=== PATIENT | female | born 1990 | race Caucasian/White ===

== ENCOUNTER → 2020-04-19 | Outpatient (CLI) | payer OTHER ==
--- NOTE | 2020-04-19 11:22 | REP ---
Left foot series: Five views. History: Injury. Pain. Findings: Five views of the left foot show overall normal mineralization. No fracture or subluxation is seen. No opaque foreign body noted. Impression: Negative radiographs of the left foot. Electronically Signed by Marcel Cruz MD 04/19/2020 11:13 A
== END ==
LOC: M LRY 10:45
PROVIDERS: ATTEND Physician Assistant
DX: S99.922A Unspecified injury of left foot, initial encounter (principal); X58.XXXA Exposure to other specified factors, initial encounter; Y92.9 Unspecified place or not applicable

== ENCOUNTER 2020-05-08 13:15 | Emergency (ER) | payer OTHER ==
[~2020-05-08] VITALS: Ht 170.2 cm; Wt 66.7 kg
[2020-05-08] MEDS ORDERED: HYDR-4468 PO (13:23)
[2020-05-08] MEDS ORDERED: HYDR10VL (13:23)
[2020-05-08] MEDS ORDERED: FLUD0.1T PO (13:23)
[2020-05-08] MEDS ORDERED: ONDANSETRON 4MG/2ML VIAL IV ONE ×2 (14:45→16:15)
[2020-05-08] MEDS ORDERED: HYDROCORTISONE 100 MG/2 ML VIAL (J1720 PER 1) IV ONE (14:45)
[2020-05-08] MEDS ORDERED: NS 1,000 ML IV ONE (14:45)
[2020-05-08] MEDS: HYDROMORPHONE HCL 0.5 MG/ 0.5 ML SYRINGE (J1170 PER 1) IV PRN ×4 (15:03→19:05)
[2020-05-08 15:12] LABS: BASO # 0.1 10^3/uL (0.0-0.2); EOS # 0.3 10^3/uL (0.0-0.5); EOS % 5.2 % (0.0-3.0); HEMATOCRIT 37.3 % (36.0-47.0); HEMOGLOBIN 12.5 g/dl (12.0-15.5); LYMPH # 1.5 10^3/uL (1.5-5.0); LYMPH % 24.7 % (24.0-44.0); MEAN CORPUSCULAR HEMOGLOBIN 30.5 pg (27.0-33.0); MEAN CORPUSCULAR HGB CONC 33.5 g/dl (32.0-36.5); MONO # 0.3 10^3/uL (0.0-0.8); MONO % 5.1 % (0.0-5.0); NEUTROPHILS # 3.8 10^3/uL (1.5-8.5); NEUTROPHILS % 63.8 % (36.0-66.0); PLATELET COUNT, AUTOMATED 218 10^3/uL (150-450); WHITE BLOOD COUNT 5.9 10^3/uL (4.0-10.0)
[2020-05-08 15:28] LABS: ALBUMIN 4.2 GM/DL (3.2-5.2); ALT/SGPT 14 U/L (12-78); BILIRUBIN,DIRECT < 0.1 MG/DL (0.0-0.2); BILIRUBIN,TOTAL 0.5 MG/DL (0.2-1.0); LIPASE 121 U/L (73-393); TOTAL PROTEIN 7.2 GM/DL (6.4-8.2)
[2020-05-08] MEDS ORDERED: ISOVUE-370 76% 100ML VIAL As Ordered ONE (16:07)
[2020-05-08 17:39] LABS: FREE THYROXINE INDEX 1.7 % (1.3-4.8); T UPTAKE 36 % (30-39); THYROID STIMULATING HORMONE 0.629 uIU/ML (0.358-3.740); THYROXINE (T4) 4.7 UG/DL (4.5-12.0)
[2020-05-08] MEDS ORDERED: PROMETHAZINE INJ 25 MG/ML VIAL (J2550) IV ONE (17:45)
--- NOTE | 2020-05-08 17:46 | IPNPDOC ---
Date Seen The patient was seen on 05/08/20. Progress Note HOSPITALIST RECOMMENDATIONS: Patient has run out of her medications for [place]'s disease and presented with abdominal pain, n/v, back pain with radiation to the lower extremities, afebrile without white count. presenting blood pressure was 132 mmHg systolic, with resolution of back pain. CTAbd angio-no mesenteric ischemia as the patient has prior history of celiac artery compromise. UA was negative. No active infection that could exacerbate adrenal insufficiency. pt was restarted on her meds, and is to followup with her PCP within 5 days of discharge. Pt is able to tolerate oral intake without persistent n/v, no fever or active infectious process, with normal CT abd, with back pain resolved. VS, I&O, 24H, Fishbone Vital Signs/I&O Vital Signs Date Time Temp Pulse Resp B/P (MAP) Pulse Ox O2 Delivery O2 Flow Rate FiO2 05/08/20 16:30 18 05/08/20 13:46 05/08/20 13:15 98.4 62 100 Room Air Laboratory Data 24H LABS Laboratory Tests 2 05/08/20 14:20: Immature Granulocyte % (Auto) 0.2, Neutrophils (%) (Auto) 63.8, Lymphocytes (%) (Auto) 24.7, Monocytes (%) (Auto) 5.1H, Eosinophils (%) (Auto) 5.2H, Basophils (%) (Auto) 1.0, Neutrophils # (Auto) 3.8, Lymphocytes # (Auto) 1.5, Monocytes # (Auto) 0.3, Eosinophils # (Auto) 0.3, Basophils # (Auto) 0.1, Nucleated Red Blood Cells % (auto) 0.0, Total Bilirubin 0.5, Direct Bilirubin < 0.1, Aspartate Amino Transf (AST/SGOT) 12, Alanine Aminotransferase (ALT/SGPT) 14, Alkaline Phosphatase 58, Total Protein 7.2, Albumin 4.2, Albumin/Globulin Ratio 1.4, Lipase 121, Thyroid Stimulating Hormone (TSH) 0.629, Free Thyroxine Index 1.7, Thyroxine (T4) 4.7, Triiodothyronine (T3) Uptake 36 05/08/20 14:38: 05/08/20 15:01: POC Glucose (Misc Panel) 90, POC Sodium (Misc Panel) 140, POC Potassium (Misc Panel) 3.8, POC Chloride (Misc Panel) 105, POC Total CO2 (Misc Panel) 22.0L, POC Blood Urea Nitrogen (Misc Panel 7L, POC Ionized Calcium (Misc Panel) 5.0, POC Creatinine (Misc Panel) 0.7, POC Hematocrit (Misc Panel) 37.0L 05/08/20 15:03: POC Beta HCG, Quantitative < 5.0 05/08/20 17:10: Urine Color STRAW, Urine Appearance HAZY, Urine pH 5.0, Urine Specific [place] 1.011, Urine Protein NEGATIVE, Urine Glucose (UA) NEGATIVE, Urine Ketones NEGAT EDDY, Urine Blood NEGATIVE, Urine Nitrite NEGATIVE, Urine Bilirubin NEGATIVE, Urine Urobilinogen 0.2, Urine Leukocyte Esterase NEGATIVE, Urine WBC (Auto) 2, Urine RBC (Auto) 1, Urine Hyaline Casts (Auto) 0, Urine Bacteria (Auto) NEGATIVE, Urine Squamous Epithelial Cells 4, Urine Mucus (Auto) SMALL, Urine Sperm (Auto) CBC/BMP Laboratory Tests 05/08/20 14:20 ELVAI SANCHEZ MD May 08, 2020 17:46
[2020-05-08] MEDS ORDERED: DILA2TAB6 PO (19:31)
[2020-05-08 19:43] VITALS: BP 114/65
[2020-05-08] MEDS ORDERED: HYDROmorphone 2 MG TAB PO ONE (19:45)
--- NOTE | 2020-05-09 04:00 | REP ---
CT ANGIOGRAM ABDOMEN: 05/08/2020. TECHNIQUE: Patient received bolus of 100 mL Isovue-370. Scanning through the abdomen with our CT angiogram protocol. Coronal and sagittal standard reconstructions with coronal MIP reformat also provided. CLINICAL HISTORY: Severe left-sided abdominal pain. "History of celiac artery disruption." I do not have any prior studies or other information available at the time of this emergent request. FINDINGS: The lung bases were clear except for minimal dependent atelectasis posteriorly in the lower lung zones. Heart not enlarged. No pericardial thickening or effusion. No hiatal hernia. Liver and spleen are normal in size and without focal lesion for arterial phase imaging. No biliary dilatation. Gallbladder is surgically absent. Common duct in the pancreatic head is up to 7 mm in transverse diameter, which is normal for postcholecystectomy patient. No calcifications seen within it. Pancreas shows no mass or pancreatic ductal dilatation. The bilateral adrenal glands are normal. Kidneys show function without obstruction, stone, mass, or cyst. No hydroureter or ureteral dilatation in the abdomen proper. Small bowel loops and colon in the abdomen proper were unremarkable. The abdominal aorta shows no aneurysm or dissection. The celiac axis has normal takeoff without stricture. Its proximal course and supply of the hepatic and splenic arteries appears grossly normal. Likewise, the SMA is without stenosis at its origin or proximal course. An MARCO is seen and unremarkable. Common iliac arteries to the bifurcation were unremarkable. Symmetric normal appearing renal arteries, as well. Lung window review of all CT slices shows no perforation or free air. The bone window review shows no acute bony abnormality in the spine or visible ribs. IMPRESSION: 1. Excellent contrast opacification with the origin and course of the celiac axis and its major vessels normal. No dissection or aneurysm. No vessel cutoff. 2. SMA, MARCO, abdominal aorta, and iliac vessels all unremarkable. 3. No renal abnormalities or renal arterial stenoses. Negative exam. Electronically Signed by Aram Wu MD 05/09/2020 08:53 A
[2020-05-09 12:52] LABS: CORTISOL BASELINE 5.2 UG/DL (4.3-22.4)
== END 2020-05-08 19:55 | disposition home or self-care (01) ==
LOC: M ED 13:15
DX: E27.1 Primary adrenocortical insufficiency (principal); R10.9 Unspecified abdominal pain; R11.0 Nausea; Z88.0 Allergy status to penicillin; Z88.2 Allergy status to sulfonamides; Z88.6 Allergy status to analgesic agent; Z88.8 Allergy status to other drugs, medicaments and biological substances
CPT/HCPCS: 74175; 80047; 80076; 81001; 82024; 82533; 83690; 84436; 84443; 84479; 84702; 85025; 96361; 96374; 96375; 96376; 99284; J1170; J1720; J2405; Q9967

== ENCOUNTER 2020-05-24 12:22 | Emergency (ER) | payer OTHER ==
[~2020-05-24 12:22] MED LIST: DILA2TAB6 PO; FLUD0.1T PO; HYDR-4468 PO; HYDR10VL
[2020-05-24] MEDS ORDERED: ONDANSETRON 4MG/2ML VIAL ONE (13:29)
[2020-05-24] MEDS ORDERED: HYDROCORTISONE 100 MG/2 ML VIAL (J1720 PER 1) As Ordered ONE (13:29)
[2020-05-24] MEDS ORDERED: HYDROMORPHONE HCL 0.5 MG/ 0.5 ML SYRINGE (J1170 PER 1) ONE (13:29)
[2020-05-24] MEDS ORDERED: HYDROMORPHONE HCL 0.5 MG/ 0.5 ML SYRINGE (J1170 PER 1) As Ordered ONE (13:29)
[2020-05-24] MEDS ORDERED: ONDANSETRON 4MG/2ML VIAL As Ordered ONE (13:29)
[2020-05-24] MEDS ORDERED: HYDROCORTISONE 100 MG/2 ML VIAL (J1720 PER 1) ONE (13:29)
[2020-05-24] MEDS ORDERED: HALOPERIDOL 5MG/ML VIAL (J1630 PER 1) As Ordered ONE (15:07)
[2020-05-24] MEDS ORDERED: HALOPERIDOL 5MG/ML VIAL (J1630 PER 1) ONE (15:07)
[2020-06-19 22:51] LABS: ALBUMIN 4.3 GM/DL (3.2-5.2); ALT/SGPT 13 U/L (12-78); BILIRUBIN,TOTAL 0.7 MG/DL (0.2-1.0); BLOOD UREA NITROGEN 9 MG/DL (7-18); CALCIUM LEVEL 9.4 MG/DL (8.5-10.1); CARBON DIOXIDE LEVEL 28 MEQ/L (21-32); CHLORIDE LEVEL 104 MEQ/L (98-107); CREATININE FOR GFR 0.81 MG/DL (0.55-1.30); FREE T4 0.91 NG/DL (0.76-1.46); GLOMERULAR FILTRATION RATE > 60.0 (>60); GLUCOSE, FASTING 79 MG/DL (70-100); SODIUM LEVEL 139 MEQ/L (136-145); THYROID STIMULATING HORMONE 0.453 uIU/ML (0.358-3.740); TOTAL PROTEIN 7.3 GM/DL (6.4-8.2)
[2020-06-24 23:16] LABS: BASO % 0.4 % (0.0-1.0); EOS # 0.2 10^3/uL (0.0-0.5); HEMATOCRIT 40.6 % (36.0-47.0); HEMOGLOBIN 13.3 g/dl (12.0-15.5); LYMPH # 1.2 10^3/uL (1.5-5.0); LYMPH % 14.8 % (24.0-44.0); MEAN CORPUSCULAR HEMOGLOBIN 30.1 pg (27.0-33.0); MEAN CORPUSCULAR HGB CONC 32.8 g/dl (32.0-36.5); MEAN CORPUSCULAR VOLUME 91.9 fl (80.0-96.0); MONO # 0.5 10^3/uL (0.0-0.8); MONO % 5.8 % (0.0-5.0); NEUTROPHILS # 6.1 10^3/uL (1.5-8.5); NEUTROPHILS % 76.7 % (36.0-66.0); PLATELET COUNT, AUTOMATED 254 10^3/uL (150-450); RED BLOOD COUNT 4.42 10^6/uL (4.00-5.40)
== END 2020-05-24 16:40 | disposition home or self-care (01) ==
LOC: M ED 12:22
DX: E27.2 Addisonian crisis (principal); Z88.2 Allergy status to sulfonamides; Z88.0 Allergy status to penicillin; Z88.1 Allergy status to other antibiotic agents; Z88.8 Allergy status to other drugs, medicaments and biological substances; Z88.6 Allergy status to analgesic agent
CPT/HCPCS: 80053; 84439; 84443; 85025; 96361; 96374; 96375; 99284; J1170; J1630; J1720; J2405

== ENCOUNTER 2020-06-21 13:01 | Inpatient (IN) | payer OTHER ==
[~2020-06-21] VITALS: Ht 170.2 cm; Wt 63.0 kg
[2020-06-21] MEDS ORDERED: HYDR-4468 PO ×3 (13:25→15:45)
[2020-06-21] MEDS ORDERED: ONDANSETRON 4MG/2ML VIAL IV ONE (14:00)
[2020-06-21] MEDS ORDERED: NS 1,000 ML IV ONE (14:00)
[2020-06-21] MEDS ORDERED: ACETAMINOPHEN 325 MG TAB PO ONE (14:00)
[2020-06-21] MEDS: HYDROMORPHONE HCL 0.5 MG/ 0.5 ML SYRINGE (J1170 PER 1) IV PRN ×5 (14:21→23:26)
[2020-06-21 14:30] LABS: BASO % 0.3 % (0.0-1.0); EOS # 0.1 10^3/uL (0.0-0.5); EOS % 0.5 % (0.0-3.0); HEMATOCRIT 38.4 % (36.0-47.0); HEMOGLOBIN 12.6 g/dl (12.0-15.5); LYMPH # 1.1 10^3/uL (1.5-5.0); LYMPH % 10.5 % (24.0-44.0); MEAN CORPUSCULAR HEMOGLOBIN 30.4 pg (27.0-33.0); MEAN CORPUSCULAR HGB CONC 32.8 g/dl (32.0-36.5); MEAN CORPUSCULAR VOLUME 92.5 fl (80.0-96.0); MONO # 0.5 10^3/uL (0.0-0.8); MONO % 4.4 % (0.0-5.0); NEUTROPHILS # 8.8 10^3/uL (1.5-8.5); NEUTROPHILS % 83.9 % (36.0-66.0); PLATELET COUNT, AUTOMATED 217 10^3/uL (150-450); RED BLOOD COUNT 4.15 10^6/uL (4.00-5.40); WHITE BLOOD COUNT 10.4 10^3/uL (4.0-10.0)
[2020-06-21 14:49] LABS: ALBUMIN 4.2 GM/DL (3.2-5.2); ALT/SGPT 12 U/L (12-78); BILIRUBIN,DIRECT 0.1 MG/DL (0.0-0.2); BILIRUBIN,TOTAL 0.5 MG/DL (0.2-1.0); BLOOD UREA NITROGEN 8 MG/DL (7-18); CALCIUM LEVEL 9.1 MG/DL (8.5-10.1); CARBON DIOXIDE LEVEL 32 MEQ/L (21-32); CHLORIDE LEVEL 106 MEQ/L (98-107); CREATININE FOR GFR 0.75 MG/DL (0.55-1.30); GLOMERULAR FILTRATION RATE > 60.0 (>60); GLUCOSE, FASTING 87 MG/DL (70-100); LIPASE 56 U/L (73-393); POTASSIUM SERUM 3.1 MEQ/L (3.5-5.1); SODIUM LEVEL 140 MEQ/L (136-145); TOTAL PROTEIN 6.8 GM/DL (6.4-8.2)
[2020-06-21] MEDS ORDERED: cefTRIAXone SOD 1 GM in D5W MINI-BAG PLUS 50 ML IV ONE (15:15)
--- NOTE | 2020-06-21 15:23 | REPVR ---
PROCEDURE INFORMATION: Exam: CT Abdomen And Pelvis Without Contrast Exam date and time: 06/21/2020 2:09 PM Age: 30 years old Clinical indication: Abdominal pain; Flank; Right TECHNIQUE: Imaging protocol: Computed tomography of the abdomen and pelvis without contrast. Radiation optimization: All CT scans at this facility use at least one of these dose optimization techniques: automated exposure control; mA and/or kV adjustment per patient size (includes targeted exams where dose is matched to clinical indication); or iterative reconstruction. COMPARISON: CT ANGIO ABDOMEN 05/08/2020 4:08 PM FINDINGS: Lungs: Clear appearing lung bases. Heart: Normal-sized heart. Liver: On the CT angiogram with contrast 05/08/2020 there is patchy enhancement throughout the right lobe of liver. This pattern may be normal variation, related to hepatocellular disease or metastasis. I would recommend an MRI scan of the liver with Eovist to exclude any possibility of significant pathology. Gallbladder and bile ducts: Surgical clips are noted at the gallbladder fossa and the patient is status post cholecystectomy. Pancreas: Normal. No ductal dilation. Spleen: Normal spleen. Adrenals: Normal adrenal glands. Normal adrenal glands. Kidneys and ureters: There is a 2 mm calcified stone lower pole the right kidney. There are 2 punctate stones lower pole of left kidney. There is no evidence of obstruction of the right or left ureter. Stomach and bowel: Unremarkable. No obstruction. No mucosal thickening. Appendix: Normal appearing appendix. Intraperitoneal space: Unremarkable. No free air. No significant fluid collection. Vasculature: Unremarkable. No abdominal aortic aneurysm. Lymph nodes: There is no evidence of lymphadenopathy. Bladder: Normal appearing urinary urinary bladder. Reproductive: Normal appearing uterus. Mild prominence left ovary with a probable 1.8 cm follicular cyst. There are prominent uterine varices throughout the pelvis. Bones/joints: Unremarkable. No acute fracture. Soft tissues: There is no evidence of soft tissue abnormality. IMPRESSION: 1. Punctate stones right and left kidney with no evidence of obstruction at this time. 2. Mild prominence of the left ovary and 1.8 cm left follicular cyst. 3. On the previous contrast examination is noted that there is patchy areas of enhancement throughout the right lobe of the liver and recommend MRI with Eovist contrast to exclude any possibility of hepatocellular disease or metastasis. 4. Prominent uterine varices through the pelvis. Electronically signed by: Eric Cisse On 06/21/2020 15:23:56 PM
[2020-06-21] MEDS ORDERED: SUMA50TA2 PO (15:45)
[2020-06-21] MEDS ORDERED: ACETAMINOPHEN TAB 650MG DOSE (2X325MG) PO PRN (17:15)
[2020-06-21] MEDS ORDERED: SUMAtriptan SUCCINATE 25 MG TAB PO PRN (17:15)
[2020-06-21] MEDS ORDERED: TAMSULOSIN 0.4 MG CAP PO ONE (17:15)
[2020-06-21] MEDS ORDERED: POTASSIUM CHLORIDE 10 MEQ SR TABLET PO ONE (17:15)
--- NOTE | 2020-06-21 18:57 | HPEPDOC ---
[facility] Medical History & Physical Date of Admission Jun 21, 2020 Date of Service: Jun 21, 2020 Attending Physician: BK ARIZA MD History and Physical CHIEF COMPLAINT: Rt flank Pain HISTORY OF PRESENT ILLNESS: A 30-year-old female with [place]'s disease, previous history of Kidney stones-Rt sided lithtripsy (April 2015) and Pyelonephritis(Nov 2016) presented to the ED with complaint of severe, int ermittent, 7/10, aching , Rt flank pain with no aggravating and relieving factors that radiates to her Rt groin last night. She has associated Nausea with no vomiting along the same time period. She also has had increased frequency with burning while passing urine. She reports feeling febrile subjectively all night . She tried taking Tylenol for it but did not help relieving her pain . ROS- No history of travel, constipation, shortness of breath, chest pain, PND, Orthopnea, dizziness. PAST MEDICAL HISTORY: 1. [place]'s disease 2. Median arcuate ligament syndrome 3. Endometriosis 4. Pyelonephritis PAST SURGICAL HISTORY: 1. Rt lithotripsy (April 2015) 2. Cholecystectomy 3. 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 Paternal grandfather passed due to aplastic anemia ALLERGIES: Please see below. HOME MEDICATIONS: Please see below. PHYSICAL EXAMINATION: VITAL SIGNS: See BELOW GENERAL APPEARANCE: The patient looks mildly uncomfortable lying in bed due to her pain. HEENT: NC/AT, EOMI- Normal CARDIOVASCULAR: RRR , S1 S2( wide splitting was heard). No murmurs LUNGS: B/L clear lung sounds.No wheezing/ crackles/ ronchi ABDOMEN: Abdomen was Non distended , tenderness at supra-pubic area / RLQ. CVA tenderness +. No organomegaly , no guarding, no rigidity. EXTREMITIES: Pulses are good volume, regular NEUROLOGICAL: Normal motor strength and sensations intact PSYCHIATRIC:Aox3 Affect normal and appropriate LABORATORY DATA: See below. IMAGIN06/21/20 CT abdomen and Pelvis- MICROBIOLOGY: Please see below. ASSESSMENT AND PLAN: 30 YO Female, with a history of Pyelonephritis, Kidney stones, Leif's disease presents with a Rt flank pain radiating to the Rt groin found to be febrile, with leucocytosis, increased frequency of micturition with burning, concerning for Pyelonephritis. #Pyelonephritis: (flank pain, fever, leucocytosis, abnormal U/A, previous history of Pyelonephritis consistent with same): Pt started on I/v fluids (NS 80CC/hr with K supplementation of 10 meq). Ceftriaxone 1g 50 mg 100mls/hr IV Q24 H #Kidney stones: Already passed some??? (CT evidence of non obstructing stones in both kidneys, past history of kidney stones, leucocytosis, family history of kidney stones) Pt started on fluids IV. Dilaudid 0.3mg PRN / (Pt put on telemetry for monitoring while on opiates) Tamsulosin 0.4 mg daily PO #Hypokalemia(3.1): - KCl PO 40 meq once - Supplement IV fluids with KCl #Nausea: - Zofran 4mg IV Q4HP #Leif's Disease: Continue home dose of Fludrocortisone 0.05mg PO daily Increase Hydrocortisone to 20mg IV Q8 hrs.( Stress dose) #DVT prophylaxis - TEDS compression stockings Vital Signs Vital Signs Date Time Temp Pulse Resp B/P (MAP) Pulse Ox O2 Delivery O2 Flow Rate FiO2 06/21/20 15:36 18 06/21/20 13:34 06/21/20 13:01 97.8 83 100 Room Air Laboratory Data Labs 24H Laboratory Tests 2 06/21/20 13:44: Immature Granulocyte % (Auto) 0.4, Neutrophils (%) (Auto) 83.9H, Lymphocytes (%) (Auto) 10.5L, Monocytes (%) (Auto) 4.4, Eosinophils (%) (Auto) 0.5, Basophils (%) (Auto) 0.3, Neutrophils # (Auto) 8.8H, Lymphocytes # (Auto) 1.1L, Monocytes # (Auto) 0.5, Eosinophils # (Auto) 0.1, Basophils # (Auto) 0.0, Nucleated Red Blood Cells % (auto) 0.0, Urine Color YELLOW, Urine Appearance CLOUDYH, Urine pH 6.0, Urine Specific [place] 1.006, Urine Protein 2+H, Urine Glucose (UA) NEGATIVE, Urine Ketones NEGATIVE, Urine Blood 3+H, Urine Nitrite NEGATIVE, Urine Bilirubin NEGATIVE, Urine Urobilinogen 0.2, Urine Leukocyte Esterase 3+H, Urine WBC (Auto) TNTCH, Urine RBC (Auto) 127H, Urine Hyaline Casts (Auto) 0, Urine Bacteria (Auto) 3+H, Urine Squamous Epithelial Cells 8, Urine Mucus (Auto) SMALL, Urine Sperm (Auto) , Anion Gap 2L, Glomerular Filtration Rate > 60.0, Calcium Level 9.1, Total Bilirubin 0.5, Direct Bilirubin 0.1, Aspartate Amino Transf (AST/SGOT) 7, Alanine Aminotransferase (ALT/SGPT) 12, Alkaline Phosphatase 62, Total Protein 6.8, Albumin 4.2, Albumin/Globulin Ratio 1.6, Lipase 56L 06/21/20 15:10: Lactic Acid Level 0.8 CBC/BMP Laboratory Tests 06/21/20 13:44 Microbiology Microbiology 06/21/20 Blood Culture, Received Pending 06/21/20 Blood Culture, Received Pending 06/21/20 Urine Culture, Received Pending Home Medications Scheduled Fludrocortisone Acetate (Fludrocortisone Acetate) 0.1 Mg Tablet, 0.05 MG PO DAILY Hydrocortisone (Hydrocortisone) 10 Mg Tablet, 15 MG PO QAM Hydrocortisone (Hydrocortisone) 10 Mg Tablet, 5 MG PO DAILY NOON Hydrocortisone (Hydrocortisone) 10 Mg Tablet, 5 MG PO QPM Scheduled PRN Sumatriptan Succinate (Sumatriptan Succinate) 50 Mg Tablet, 50 MG PO ASDIRECTED PRN for MIGRAINE Allergies Coded Allergies: Penicillins (Verified Allergy, Unknown, rash, 05/08/20) Sulfa (Sulfonamide Antibiotics) (Verified Allergy, Unknown, rash, 05/08/20) ketorolac (Verified Allergy, Unknown, anaphylaxis, 05/08/20) metoclopramide (Verified Allergy, Unknown, anaphylaxis, 05/08/20) morphine (Verified Allergy, Unknown, chest pain, difficulty breathing, 05/08/20) NSAIDS (Non-Steroidal Anti-Inflamma (Verified Adverse Reaction, Unknown, ulcer, 05/08/20) A-FIB/CHADSVASC A-FIB History Current/History of A-Fib/PAF?: No Current PO Anticoag Therapy: No GME ATTESTATION GME ATTESTATION My faculty preceptor for this patient encounter was physically present during the encounter and was fully available. All aspects of the patient interview, examination, medical decision making process, and medical care plan development were reviewed and approved by the faculty preceptor. The faculty preceptor is aware and concurs with the plan as stated in the body of this note and will attest to such by his/her cosignature. ATTENDING NOTE I, Bk Ariza, have independently examined this patient and performed my own physical exam, as well as reviewed the documentation and edited where necessary. I have discussed in detail with the resident / student the findings and plan of treatment as documented by the resident / student and edited their note. I agree with their findings and treatment plan and have edited their documentation. I will continue to follow the patient during this hospital stay. Boy Burgos MD Jun 21, 2020 18:53 BK ARIZA MD Jun 22, 2020 14:06
[2020-06-21] MEDS: KCL 20MEQ in NS 1000ML 1,000 ML IV SCH (19:03)
[2020-06-21] MEDS: HYDROCORTISONE 100 MG/2 ML VIAL (J1720 PER 1) IV SCH (19:03)
[2020-06-21] MEDS: ONDANSETRON 4MG/2ML VIAL IV PRN ×2 (19:06→22:42)
[2020-06-21 19:46] LABS: HCG, SERUM QUALITATIVE NEGATIVE (NEGATIVE)
[2020-06-21 19:57] LABS: HCG, SERUM QUANTITATIVE < 1.0 MIU/ML
[2020-06-21] MEDS ORDERED: PROMETHAZINE INJ 25 MG/ML VIAL (J2550) IV ONE (20:30)
[2020-06-21 22:30] VITALS: BP 135/84
[2020-06-21 23:00] VITALS: O2SAT 99
[2020-06-21] MEDS ORDERED: PILL CUTTER 1 EACH XX PRN (23:00)
[2020-06-22] VITALS (21 sets, daily range): BP systolic 113–138; BP diastolic 57–88; O2SAT 96–99
[2020-06-22] MEDS: PROMETHAZINE INJ 25 MG/ML VIAL (J2550) IV PRN ×3 (01:02→10:05)
[2020-06-22] MEDS: HYDROCORTISONE 100 MG/2 ML VIAL (J1720 PER 1) IV SCH ×3 (01:02→18:13)
[2020-06-22] MEDS: HYDROMORPHONE HCL 0.5 MG/ 0.5 ML SYRINGE (J1170 PER 1) IV PRN ×8 (02:16→22:00)
[2020-06-22] MEDS: ONDANSETRON 4MG/2ML VIAL IV PRN ×3 (02:45→21:59)
[2020-06-22] MEDS: KCL 20MEQ in NS 1000ML 1,000 ML IV SCH (05:08)
[2020-06-22 06:09] LABS: HEMATOCRIT 28.6 % (36.0-47.0); MEAN CORPUSCULAR HGB CONC 33.6 g/dl (32.0-36.5); MEAN CORPUSCULAR VOLUME 92.3 fl (80.0-96.0); PLATELET COUNT, AUTOMATED 184 10^3/uL (150-450); WHITE BLOOD COUNT 5.8 10^3/uL (4.0-10.0)
[2020-06-22 06:27] LABS: HEMOGLOBIN 9.6 g/dl (12.0-15.5)
[2020-06-22 06:28] LABS: BLOOD UREA NITROGEN 5 MG/DL (7-18); CALCIUM LEVEL 8.3 MG/DL (8.5-10.1); CARBON DIOXIDE LEVEL 29 MEQ/L (21-32); CHLORIDE LEVEL 109 MEQ/L (98-107); CREATININE FOR GFR 0.66 MG/DL (0.55-1.30); GLOMERULAR FILTRATION RATE > 60.0 (>60); GLUCOSE, FASTING 110 MG/DL (70-100); MAGNESIUM LEVEL 1.9 MG/DL (1.8-2.4); POTASSIUM SERUM 3.6 MEQ/L (3.5-5.1); SODIUM LEVEL 142 MEQ/L (136-145)
[2020-06-22] MEDS: FLUDROCORTISONE ACETATE 0.1 MG TAB PO SCH (08:25)
[2020-06-22] MEDS ORDERED: HYDROMORPHONE HCL 0.5 MG/ 0.5 ML SYRINGE (J1170 PER 1) IV PRN (11:30)
[2020-06-22] MEDS ORDERED: cefTRIAXone SOD 1 GM in D5W MINI-BAG PLUS 50 ML IV SCH (15:00)
--- NOTE | 2020-06-22 16:15 | IPNPDOC ---
Text Note Date of Service The patient was seen on 06/22/20. NOTE S: The pt is a 30 YO F with a history of [place]'s disease , recurrent kidney stones, pyelonephritis who presented to the ED with the complaint of severe, intermittent, 8/10 Rt flank pain radiating to the groin with no aggravating and relieving factors found to have fever , leucocytosis, tachycardia, elevated Acute phase reactants and an abnormal U/A concerning for Pyelonephritis vs Nephrolithiasis. Pt states she is doing better but still reports a dull aching pain ,7/10 ,localized with no aggravating and relieving factors, associated with several bouts of vomiting which made it hard for her to sleep. After her scheduled dose of Dilaudid and Zofran plus Phenergan she got marked relief. The patient has not been vomiting ever since and kept her breakfast down. O: GENERAL: Pt looks to have mild discomfort, lying in her bed able to give good history. HEENT: HEENT: NC/AT, EOMI- Normal CARDIOVASCULAR: RRR , S1 S2( wide splitting was heard). No murmurs LUNGS: B/L clear lung sounds.No wheezing/ crackles/ ronchi ABDOMEN: Abdomen was Non distended , tenderness at supra-pubic area / RLQ. CVA tenderness +. No organomegaly , no guarding, no rigidity. EXTREMITIES: Pulses are good volume, regular NEUROLOGICAL: Normal motor strength and sensations intact PSYCHIATRIC:Aox3 Affect normal and appropriate LABORATORY DATA: See below ASSESSMENT AND PLAN: 30 YO Female, with a history of Pyelonephritis, Kidney stones, Leif's disease presents with a Rt flank pain radiating to the Rt groin found to be febrile, with leucocytosis, increased frequency of micturition with burning, concerning for Pyelonephritis- Improving, as per her labs and clinical presentation. #Pyelonephritis: (flank pain, fever, leucocytosis, abnormal U/A, previous history of Pyelonephritis consistent with same): Her leucocytosis resolved today. Pt's I/V fluids were Discontinued. Ceftriaxone 1g 50 mg 100mls/hr IV Q24 H- Continue. #Kidney stones: (CT evidence of non obstructing stones in both kidneys, past history of kidney stones, leucocytosis, family history of kidney stones) Dilaudid - Dose was increased to 0.9 every 3 hrs as needed. (Pt put on telemetry for monitoring while on opiates) Tamsulosin 0.4 mg daily PO- Continue #Hypokalemia(3.1): Resolved as per morning labs- Fluids discontinued. #Nausea: - Zofran 4mg IV Q4HP #Leif's Disease: Continue home dose of Fludrocortisone 0.05mg PO daily Increase Hydrocortisone to 20mg IV Q8 hrs.( Stress dose) #Wide split S2 Unsure whether its truly a wide split S2 but patient is asymptomatic with no SOB, Chest pain or palpitations. Will followup in the morning. - If true murmur, will likely have patient follow up after dc with cardiology or get echo from PCP. # Liver enhancement incidentally found on CT: MRI was ordered which could not be done in the hospital today due to permanent ear piercing. Follow-up with PCP for an MRI, after getting the ear piercing out, as advised by the Radiologist ". On the previous contrast examination is noted that there is patchy areas of enhancement throughout the right lobe of the liver and recommend MRI with Eovist contrast to exclude any possibility of hepatocellular disease or metastasis". DISPOSITION: The patient is still in pain, but improving. #DVT prophylaxis - TEDS compression stockings VS,Fishbone, I+O VS, Fishbone, I+O Laboratory Tests 06/22/20 05:18 Vital Signs Date Time Temp Pulse Resp B/P (MAP) Pulse Ox O2 Delivery O2 Flow Rate FiO2 06/22/20 15:46 15 06/22/20 12:00 96 Room Air 06/22/20 12:00 98.5 64 123/72 (89) I&O- Last 24 Hours up to 6 AM 06/22/20 06:00 Intake Total 2950 ml Output Total 950 ml Balance 2000 ml GME ATTESTATION GME ATTESTATION My faculty preceptor for this patient encounter was physically present during the encounter and was fully available. All aspects of the patient interview, examination, medical decision making process, and medical care plan development were reviewed and approved by the faculty preceptor. The faculty preceptor is aware and concurs with the plan as stated in the body of this note and will attest to such by his/her cosignature. ATTENDING NOTE I, Bk Ariza, have independently examined this patient and performed my own physical exam, as well as reviewed the documentation and edited where necessary. I have discussed in detail with the resident / student the findings and plan of treatment as documented by the resident / student and edited their note. I agree with their findings and treatment plan and have edited their documentation. I will continue to follow the patient during this hospital stay. Boy Burgos MD Jun 22, 2020 16:15 BK ARIZA MD Jun 22, 2020 20:29
[2020-06-23] VITALS (7 sets, daily range): BP systolic 129–150; BP diastolic 85–110; O2SAT 96–97
[2020-06-23] MEDS: PROMETHAZINE INJ 25 MG/ML VIAL (J2550) IV PRN (00:34)
[2020-06-23] MEDS: HYDROCORTISONE 100 MG/2 ML VIAL (J1720 PER 1) IV SCH ×2 (02:26→09:57)
[2020-06-23] MEDS: HYDROMORPHONE HCL 0.5 MG/ 0.5 ML SYRINGE (J1170 PER 1) IV PRN ×2 (02:27→09:57)
[2020-06-23 06:39] LABS: HEMOGLOBIN 10.9 g/dl (12.0-15.5); MEAN CORPUSCULAR HEMOGLOBIN 29.9 pg (27.0-33.0); MEAN CORPUSCULAR HGB CONC 32.1 g/dl (32.0-36.5); MEAN CORPUSCULAR VOLUME 93.4 fl (80.0-96.0); PLATELET COUNT, AUTOMATED 201 10^3/uL (150-450); RED BLOOD COUNT 3.64 10^6/uL (4.00-5.40); WHITE BLOOD COUNT 6.7 10^3/uL (4.0-10.0)
[2020-06-23 07:03] LABS: BLOOD UREA NITROGEN 5 MG/DL (7-18); CALCIUM LEVEL 8.6 MG/DL (8.5-10.1); CARBON DIOXIDE LEVEL 30 MEQ/L (21-32); CHLORIDE LEVEL 105 MEQ/L (98-107); GLOMERULAR FILTRATION RATE > 60.0 (>60); GLUCOSE, FASTING 121 MG/DL (70-100); MAGNESIUM LEVEL 1.9 MG/DL (1.8-2.4); POTASSIUM SERUM 3.6 MEQ/L (3.5-5.1); SODIUM LEVEL 140 MEQ/L (136-145)
[2020-06-23] MEDS: ONDANSETRON 4MG/2ML VIAL IV PRN (07:14)
--- NOTE | 2020-06-23 09:22 | IPNPDOC ---
Text Note Date of Service The patient was seen on 06/23/20. NOTE S: The pt is a 30 YO F with a history of [place]'s disease , recurrent kidney stones, pyelonephritis who presented to the ED with the complaint of severe, intermittent, 8/10 Rt flank pain radiating to the groin with no aggravating and relieving factors found to have fever , leucocytosis, tachycardia, elevated Acute phase reactants and an abnormal U/A concerning for Pyelonephritis vs Nephrolithiasis. Pt states she is doing better but still reports a dull aching pain ,6/10 ,localized with no aggravating and relieving factors, associated with some nausea and vomited once. After her scheduled dose of Dilaudid and Zofran plus Phenergan she got marked relief. O: Pt's leucocytosis has resolved, afebrile, decreased frequency and burning in micturition as of today. GENERAL: Pt looks to have mild discomfort, lying in her bed able to give good history. HEENT: HEENT: NC/AT, EOMI- Normal CARDIOVASCULAR: RRR , S1 S2( normal inspiratory split heard). No murmurs LUNGS: B/L clear lung sounds.No wheezing/ crackles/ ronchi ABDOMEN: Abdomen was Non distended , tenderness at supra-pubic area / RLQ. CVA tenderness +. No organomegaly , no guarding, no rigidity. EXTREMITIES: Pulses are good volume, regular NEUROLOGICAL: Normal motor strength and sensations intact PSYCHIATRIC:Aox3 Affect normal and appropriate LABORATORY DATA: See below ASSESSMENT AND PLAN: 30 YO Female, with a history of Pyelonephritis, Kidney stones, Leif's disease presents with a Rt flank pain radiating to the Rt groin found to be febrile, with leucocytosis, increased frequency of micturition with burning, concerning for Pyelonephritis- Improving, as per her labs and clinical presentation. #Pyelonephritis: (flank pain, fever, leucocytosis, abnormal U/A, previous history of Pyelonephritis consistent with same): Her leucocytosis resolved -still normal. Pt's I/V fluids were Discontinued. Ceftriaxone 1g 50 mg 100mls/hr IV Q24 H- Continue. #Kidney stones: (CT evidence of non obstructing stones in both kidneys, past history of kidney stones, leucocytosis, family history of kidney stones) Dilaudid - Dose was increased to 0.9 every 3 hrs as needed. (Pt put on telemetry for monitoring while on opiates) Tamsulosin 0.4 mg daily PO- Continue #Hypokalemia(3.1): Serum potassium level=3.6. #Nausea: - Zofran 4mg IV Q4HP -Phenergan added yesterday. #Banks's Disease: Continue home dose of Fludrocortisone 0.05mg PO daily Increase Hydrocortisone to 20mg IV Q8 hrs.( Stress dose) # Liver enhancement incidentally found on CT: MRI was ordered which could not be done in the hospital today due to permanent ear piercing. Follow-up with PCP for an MRI, after getting the ear piercing out, as advised by the Radiologist ". On the previous contrast examination is noted that there is patchy areas of enhancement throughout the right lobe of the liver and recommend MRI with Eovist contrast to exclude any possibility of hepatocellular disease or metastasis". DISPOSITION: The patient is still in pain, but improving. May Discharge on oral antibiotics. #DVT prophylaxis - TEDS compression stockings VS,Fishbone, I+O VS, Fishbone, I+O Laboratory Tests 06/23/20 06:20 Vital Signs Date Time Temp Pulse Resp B/P (MAP) Pulse Ox O2 Delivery O2 Flow Rate FiO2 06/23/20 08:00 97.5 74 17 150/110 (123) 100 Room Air I&O- Last 24 Hours up to 6 AM 06/23/20 06:00 Intake Total 510 ml Output Total 2475 ml Balance -1965 ml GME ATTESTATION GME ATTESTATION My faculty preceptor for this patient encounter was physically present during the encounter and was fully available. All aspects of the patient interview, examination, medical decision making process, and medical care plan development were reviewed and approved by the faculty preceptor. The faculty preceptor is aware and concurs with the plan as stated in the body of this note and will attest to such by his/her cosignature. ATTENDING NOTE Patient seen and examined independently. Agree with residents note. Boy Burgos MD Jun 23, 2020 09:22 SUSAN RAM MD Jul 17, 2020 11:15
[2020-06-23] MEDS: FLUDROCORTISONE ACETATE 0.1 MG TAB PO SCH (09:57)
[2020-06-23] MEDS ORDERED: CEFD300CAP PO (10:02)
[2020-06-23] MEDS ORDERED: OXYC1TAB23 PO (10:07)
[2020-06-23] MEDS ORDERED: REGL5TAB2 PO (10:07)
[2020-06-23] MEDS ORDERED: CEFDINIR 300 MG CAP (OMNICEF) PO ONE (10:15)
[2020-06-23] MEDS: PERCOCET 5MG/325MG TAB PO ONE ×2 (10:15→12:27)
--- NOTE | 2020-06-23 12:06 | DS.PDOC ---
Discharge Summary General Date of Admission Jun 21, 2020 at 17:26 Date of Discharge 06/23/20 Primary Care Physician: Yousif Attending Physician: BK PEREZ MD Discharge Summary PROCEDURES PERFORMED DURING STAY: [None]. ADMITTING DIAGNOSES\ DISCHARGE DIAGNOSES: Pyelonephritis with UTI. COMPLICATIONS/CHIEF COMPLAINT: Rt flank Pain. HISTORY OF PRESENT ILLNESS: The pt is a 30 year old Female, with a history of Leif's disease, recurrent kidney stones, pyelonephritis, who presented with rt flank pain and vomiting 2 days ago . The pain was severe 9/10, sharp, intermittent, with no aggravating or relieving factors radiating to the rt groin , with Urinary tract Infection symptoms ( Increased frequency, burning) found to have leucocytosis, fever, tachycardia suggestive of Pyelonephritis with UTI. HOSPITAL COURSE: Miss Rodas was admitted with severe pain and increase in urinary frequency with burning 2 days ago, for which she was started on IV fluids overnight , IV Ceftriaxone and I/V Dilaudid ,for Pyelonephritis. Her Hydrcortisone dose for Add jonathan's was changed to stress dosing IV. CT scan was done which did not show any signs of pyelonephritis. Blood cultures were negative, Urine culture is still pending. No previous cultures available . Initial labs showed a low potassium levels (3.1) which was corrected by a one time oral dose of KCl 40 MEQ also. The pt responded well to the antibiotics and her labs were normal in a day. Her IV fluids were discontinued . Overnight she had poor pain control with several episodes of vomiting- she was on minimum dose of iv dilaudid , Phenergan and iv zofran that controlled her symptoms. 2nd day she was more stable both clinically and investigation james , tolerated her breakfast, but still had pain and had an increase the dose of her Dilaudid. Post that, she was stable and able to rest. Today she is improved even more and is ready to be switched to oral pain medication( percocet) and oral antibiotics( cefdinir 300 mg) PO x 5 days on discharge. Pt advised to be compliant with the medication and return to ER if symptoms worsen (eg worsening pain, persistent fevers, worsening chills and rigors or worsening urinary symptoms. Continue home medications. Maximal benefit from this inpatient stay has been obtained and the Pt is medically optimized for discharge with the discharge instructions as below. DISCHARGE MEDICATIONS: Please see below. ALLERGIES: Please see below. PHYSICAL EXAMINATION ON DISCHARGE: VITAL SIGNS: Please see below. GENERAL:Miss Rodas looks comfortable today lying in bed with mild distress due to pain HEENT:AT/NT, EOMI, No scleral icterus, cyanosis, pallor. NECK:No LAD, No thyromegaly CARDIOVASCULAR EXAMINATION: RRR, Normal S1, S2( normal splitting on i nspiration). No murmurs. RESPIRATORY EXAMINATION: Clear on auscultation, No wheezing/rhonchi/crackles ABDOMINAL EXAMINATION:Tender to palpation around the Rt flank area, No redness, Costovertebral tenderness +, Non distended, No organomegaly, no rashes, no scars. EXTREMITIES: Good range of motionx4. SKIN: Normal NEUROLOGICAL EXAMINATION: Good motor strength, sensations intact. PSYCHIATRIC EXAMINATION: AOx3, Normal Affect. LABORATORY DATA: Please see below. IMAGING: Her CT showed Kidneys and ureters: There is a 2 mm calcified stone lower pole the right kidney. There are 2 punctate stones lower pole of left kidney. There is no evidence of obstruction of the right or left ureter. : On the CT angiogram with contrast 05/08/2020 there is patchy enhancement throughout the right lobe of liver. This pattern may be normal variation, related to hepatocellular disease or metastasis. I would recommend an MRI scan of the liver with Eovist to exclude any possibility of significant pathology. Gallbladder and bile ducts: Surgical clips are noted at the gallbladder fossa and the patient is status post cholecystectomy PROGNOSIS: GOOD ACTIVITY: [As tolerated]. DIET: As Tolerated DISPOSITION:She has normal lab values, normal vitals, Moderate pain ( switched to oral Percocet for 3 days), DISCHARGE INSTRUCTIONS: 1. Drink plenty of fluids 2. Continue oral antibiotics as prescribed. 3. Pt advised to be compliant with the medication and return to ER if symptoms worsen (eg worsening pain, persistent fevers, worsening chills and rigors or worsening urinary symptoms. ITEMS TO FOLLOWUP ON ON OUTPATIENT: 1. Follow up with her PCP (1-2weeks) (Dr Malcolm). 2. PCP follow up for MRI of the liver given abnormal CT imaging findings - Attempted to pursue MRI inpatient; however she had a permanent ear piercing that was unable to be removed - Patient advised to have piercing removed before MRI - Advised patient of imaging findings and need for follow up; patient has verbalized understanding DISCHARGE CONDITION: Improved and stable. TIME SPENT ON DISCHARGE: Greater than 30 minutes. Vital Signs/I&Os Vital Signs Date Time Temp Pulse Resp B/P (MAP) Pulse Ox O2 Delivery O2 Flow Rate FiO2 06/23/20 09:57 17 06/23/20 08:00 97.5 74 150/110 (123) 100 Room Air I&O- Last 24 Hours up to 6 AM 06/23/20 06:00 Intake Total 510 ml Output Total 2475 ml Balance -1965 ml Laboratory Data Labs 24H Laboratory Tests 2 06/23/20 06:20: Nucleated Red Blood Cells % (auto) 0.0, Anion Gap 5L, Glomerular Filtration Rate > 60.0, Calcium Level 8.6, Magnesium Level 1.9 CBC/BMP Laboratory Tests 06/23/20 06:20 Microbiology Microbiology 06/21/20 Blood Culture - Preliminary, Resulted No growth after 24 hours . All specim... 06/21/20 Blood Culture - Preliminary, Resulted No growth after 24 hours . All specim... 06/21/20 Urine Culture, Received Pending Discharge Medications Scheduled Cefdinir (Cefdinir) 300 Mg Capsule, 1 CAP PO BID Fludrocortisone Acetate (Fludrocortisone Acetate) 0.1 Mg Tablet, 0.05 MG PO DAILY, (Reported) Hydrocortisone (Hydrocortisone) 10 Mg Tablet, 15 MG PO QAM, (Reported) Hydrocortisone (Hydrocortisone) 10 Mg Tablet, 5 MG PO DAILY, (Reported) NOON Hydrocortisone (Hydrocortisone) 10 Mg Tablet, 5 MG PO QPM, (Reported) Scheduled PRN Ondansetron HCl (Zofran) 4 Mg Tablet, 4 MG PO Q6H PRN for NAUSEA Oxycodone HCl/Acetaminophen (Oxycodone-Acetaminophen 5-325) 1 Each Tablet, 1 TAB PO TIDP PRN for pain Sumatriptan Succinate (Sumatriptan Succinate) 50 Mg Tablet, 50 MG PO ASDIRECTED PRN for MIGRAINE, (Reported) Allergies Coded Allergies: Penicillins (Verified Allergy, Unknown, rash, 05/08/20) Sulfa (Sulfonamide Antibiotics) (Verified Allergy, Unknown, rash, 05/08/20) ketorolac (Verified Allergy, Unknown, anaphylaxis, 05/08/20) metoclopramide (Verified Allergy, Unknown, anaphylaxis, 05/08/20) morphine (Verified Allergy, Unknown, chest pain, difficulty breathing, 05/08/20) NSAIDS (Non-Steroidal Anti-Inflamma (Verified Adverse Reaction, Unknown, ulcer, 05/08/20) GME ATTESTATION GME ATTESTATION My faculty preceptor for this patient encounter was physically present during the encounter and was fully available. All aspects of the patient interview, examination, medical decision making process, and medical care plan development were reviewed and approved by the faculty preceptor. The faculty preceptor is aware and concurs with the plan as stated in the body of this note and will attest to such by his/her cosignature. ATTENDING NOTE I, Bk Perez, have independently examined this patient and performed my own physical exam, as well as reviewed the documentation and edited where necessary. I have discussed in detail with the resident / student the findings and plan of treatment as documented by the resident / student and edited their note. I agree with their findings and treatment plan and have edited their documentation. I will continue to follow the patient during this hospital stay. Time spent on discharge 35 minutes Boy Burgos MD Jun 23, 2020 12:06 BK PEREZ MD Jun 23, 2020 19:45
[2020-06-23] MEDS ORDERED: ZOFR4TAB16 PO (12:39)
== END 2020-06-23 13:20 | disposition home or self-care (01) | DRG 690 ==
LOC: M ED 13:01 → M ED INP 17:26 → M PCU 22:29
PROVIDERS: ADMIT Internal Medicine; ATTEND Internal Medicine
DX: N10 Acute pyelonephritis (principal); N39.0 Urinary tract infection, site not specified; D51.0 Vitamin B12 deficiency anemia due to intrinsic factor deficiency; Z79.899 Other long term (current) drug therapy; Z88.2 Allergy status to sulfonamides; Z88.0 Allergy status to penicillin; Z88.5 Allergy status to narcotic agent; Z88.8 Allergy status to other drugs, medicaments and biological substances; Z88.6 Allergy status to analgesic agent; E87.6 Hypokalemia; N20.0 Calculus of kidney

== ENCOUNTER 2020-07-27 17:15 | Emergency (ER) | payer OTHER ==
[~2020-07-27] VITALS: Ht 170.2 cm; Wt 60.9 kg
[~2020-07-27 17:15] MED LIST changes: +CEFD300CAP PO; +OXYC1TAB23 PO; +REGL5TAB2 PO; +SUMA50TA2 PO; +ZOFR4TAB16 PO
[2020-07-27] MEDS ORDERED: NS 1,000 ML IV ONE (18:00)
[2020-07-27] MEDS ORDERED: ONDANSETRON 4MG/2ML VIAL IV ONE (18:00)
[2020-07-27] MEDS ORDERED: HYDROCORTISONE 100 MG/2 ML VIAL (J1720 PER 1) IV ONE (18:00)
[2020-07-27 18:14] LABS: HEMATOCRIT 36.2 % (36.0-47.0); MEAN CORPUSCULAR HEMOGLOBIN 29.9 pg (27.0-33.0); MEAN CORPUSCULAR HGB CONC 33.1 g/dl (32.0-36.5); MEAN CORPUSCULAR VOLUME 90.3 fl (80.0-96.0); PLATELET COUNT, AUTOMATED 259 10^3/uL (150-450); RED BLOOD COUNT 4.01 10^6/uL (4.00-5.40); WHITE BLOOD COUNT 6.2 10^3/uL (4.0-10.0)
[2020-07-27 18:45] VITALS: BP 115/63
[2020-07-27 18:45] LABS: ALBUMIN 4.1 GM/DL (3.2-5.2); ALT/SGPT 16 U/L (12-78); BILIRUBIN,TOTAL 0.3 MG/DL (0.2-1.0); BLOOD UREA NITROGEN 6 MG/DL (7-18); CALCIUM LEVEL 9.3 MG/DL (8.5-10.1); CARBON DIOXIDE LEVEL 27 MEQ/L (21-32); CHLORIDE LEVEL 107 MEQ/L (98-107); CREATININE FOR GFR 0.82 MG/DL (0.55-1.30); GLOMERULAR FILTRATION RATE > 60.0 (>60); GLUCOSE, FASTING 71 MG/DL (70-100); POTASSIUM SERUM 3.7 MEQ/L (3.5-5.1); SODIUM LEVEL 139 MEQ/L (136-145); TOTAL PROTEIN 7.2 GM/DL (6.4-8.2)
[2020-07-27 18:53] LABS: CORTISOL BASELINE 3.7 UG/DL (4.3-22.4)
[2020-07-27] MEDS ORDERED: ACETAMINOPHEN 325 MG TAB PO ONE (19:00)
[2020-07-27] MEDS ORDERED: MACR100C43 PO (19:00)
== END 2020-07-27 20:09 | disposition home or self-care (01) ==
LOC: M ED 17:15
DX: N39.0 Urinary tract infection, site not specified (principal); E27.1 Primary adrenocortical insufficiency; Z79.899 Other long term (current) drug therapy; Z88.6 Allergy status to analgesic agent; Z88.0 Allergy status to penicillin; Z88.2 Allergy status to sulfonamides; Z88.5 Allergy status to narcotic agent; Z88.8 Allergy status to other drugs, medicaments and biological substances
CPT/HCPCS: 80053; 81001; 82024; 82533; 85027; 87086; 96361; 96374; 96375; 99284; J1720; J2405

== ENCOUNTER 2020-09-10 13:53 | Emergency (ER) | payer OTHER ==
[~2020-09-10] VITALS: Ht 170.2 cm; Wt 59.1 kg
[~2020-09-10 13:53] MED LIST changes: +MACR100C43 PO
[2020-09-10] MEDS ORDERED: NORT10CA2 (14:12)
[2020-09-10] MEDS ORDERED: ZOLM5TAB14 (14:12)
[2020-09-10] MEDS ORDERED: DICY20TA11 (14:12)
[2020-09-10] MEDS ORDERED: PRED5TA (14:12)
[2020-09-10] MEDS ORDERED: HYDR10VL (14:12)
[2020-09-10] MEDS ORDERED: PANTOPRAZOLE 40MG VIAL (C9113 PER 1) IV ONE (14:30)
[2020-09-10] MEDS ORDERED: ACETAMINOPHEN 500 MG TAB PO ONE (14:30)
[2020-09-10] MEDS ORDERED: ONDANSETRON 4MG/2ML VIAL IV ONE ×2 (14:30→16:15)
[2020-09-10] MEDS ORDERED: NS 1,000 ML IV ONE (14:30)
[2020-09-10 14:52] LABS: BASO # 0.1 10^3/uL (0.0-0.2); EOS # 0.2 10^3/uL (0.0-0.5); EOS % 4.1 % (0.0-3.0); HEMATOCRIT 38.4 % (36.0-47.0); HEMOGLOBIN 12.6 g/dl (12.0-15.5); LYMPH % 42.3 % (24.0-44.0); MEAN CORPUSCULAR HEMOGLOBIN 29.2 pg (27.0-33.0); MEAN CORPUSCULAR HGB CONC 32.8 g/dl (32.0-36.5); MEAN CORPUSCULAR VOLUME 89.1 fl (80.0-96.0); MONO # 0.3 10^3/uL (0.0-0.8); MONO % 5.6 % (0.0-5.0); NEUTROPHILS # 2.2 10^3/uL (1.5-8.5); NEUTROPHILS % 46.6 % (36.0-66.0); PLATELET COUNT, AUTOMATED 257 10^3/uL (150-450); RED BLOOD COUNT 4.31 10^6/uL (4.00-5.40); WHITE BLOOD COUNT 4.8 10^3/uL (4.0-10.0)
[2020-09-10 15:03] LABS: INR 0.95; PROTHROMBIN TIME 12.9 SECONDS (12.5-14.3)
[2020-09-10 15:04] LABS: PARTIAL THROMBOPLASTIN TIME 28.6 SECONDS (24.2-38.5)
[2020-09-10 15:21] LABS: ALBUMIN 4.4 GM/DL (3.2-5.2); ALT/SGPT 12 U/L (12-78); BILIRUBIN,DIRECT 0.1 MG/DL (0.0-0.2); BILIRUBIN,TOTAL 0.4 MG/DL (0.2-1.0); CK-MB VALUE MASS < 1.0 NG/ML (<3.6); CPK CREATINE PHOSPHOKINASE 66 U/L (26-192); LIPASE 82 U/L (73-393); MB/CK RELATIVE INDEX 1.52 (< OR =4); TROPONIN I < 0.02 NG/ML (< 0.10)
[2020-09-10 15:33] LABS: POTASSIUM SERUM 3.2 MEQ/L (3.5-5.1)
--- NOTE | 2020-09-10 15:51 | REP ---
INDICATION: RUQ pain s/p cholecystectomy. COMPARISON: No prior ultrasound exams FINDINGS: The patient is status post cholecystectomy. Ultrasonographic evaluation of the liver parenchyma shows no abnormality. There is no intrahepatic or extrahepatic ductal dilatation. The common bile duct measures between 3 and 4 mm. The imaged portion of pancreas is within normal limits.. The imaged portion the right kidney shows echogenic foci 1 in the midpole 1 in the lower pole. The echoes within the medullary region are diffusely increased. There is no hydronephrosis. IMPRESSION: Findings involving the right kidney as described above suggestive of possible medullary sponge kidney. This needs to be correlated clinically with appropriate follow-up. Right upper quadrant ultrasound is otherwise unremarkable. <Electronically signed by Adrian Elias > 09/10/20 [id number]
[2020-09-10] MEDS ORDERED: POTASSIUM CHLORIDE 10 MEQ SR TABLET PO ONE (16:00)
--- NOTE | 2020-09-10 16:23 | REP ---
INDICATION: Abdominal Pain. COMPARISON: None. FINDINGS: The superior mediastinal structures are midline. The cardiac silhouette is unremarkable in size, shape, and position. The diaphragmatic surfaces of the lungs are regular, and the costophrenic angles are clear. The pulmonary shaw are clear. The imaged osseous structures are intact. IMPRESSION: There is no acute cardiopulmonary disease. <Electronically signed by Adrian Elias > 09/10/20 [id number]
[2020-09-10] MEDS ORDERED: fentaNYL 100 MCG/2 ML INJECTION (J3010) IV ONE (17:00)
[2020-09-10] MEDS ORDERED: ISOVUE-370 76% 100ML VIAL As Ordered ONE (17:07)
--- NOTE | 2020-09-10 17:36 | REPVR ---
PROCEDURE INFORMATION: Exam: CT Abdomen And Pelvis With Contrast Exam date and time: 09/10/2020 5:11 PM Age: 30 years old Clinical indication: Abdominal pain; Localized; Right upper quadrant (ruq); Additional info: Ruq pain TECHNIQUE: Imaging protocol: Computed tomography of the abdomen and pelvis with intravenous contrast. Radiation optimization: All CT scans at this facility use at least one of these dose optimization techniques: automated exposure control; mA and/or kV adjustment per patient size (includes targeted exams where dose is matched to clinical indication); or iterative reconstruction. Contrast material: ISOVUE 370; Contrast volume: 100 ml; Contrast route: INTRAVENOUS (IV); COMPARISON: CT ABD PELVIS W/O CONTRAST 06/21/2020 2:09 PM FINDINGS: Liver: Normal. No mass. Gallbladder and bile ducts: There has been a cholecystectomy. Pancreas: Normal. No ductal dilation. Spleen: Normal. No splenomegaly. Adrenal glands: Normal. No mass. Kidneys and ureters: Punctate nonobstructive calculus lower pole right kidney. Otherwise normal. No hydronephrosis. Stomach and bowel: Unremarkable. No obstruction. No mucosal thickening. Appendix: No evidence of appendicitis. Intraperitoneal space: Unremarkable. No free air. No significant fluid collection. Vasculature: Unremarkable. No abdominal aortic aneurysm. Lymph nodes: Unremarkable. No enlarged lymph nodes. Urinary bladder: Unremarkable as visualized. Reproductive: Unremarkable as visualized. Bones/joints: Mild central spinal stenosis L4-L5. Soft tissues: Unremarkable. IMPRESSION: 1. There has been a cholecystectomy. 2. Punctate nonobstructive calculus right kidney. 3. No acute findings. Electronically signed by: Bryan Muller On 09/10/2020 17:35:36 PM
[2020-09-10] MEDS ORDERED: ONDA4TAB6 PO (18:01)
[2020-09-10 18:21] VITALS: BP 102/63
--- NOTE | 2020-09-12 10:01 | ECGEPIP ---
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
--- NOTE | 2020-09-12 10:28 | ED PDOC ---
Post-Departure Follow-Up ft gypsy grimes faxed formal report of liver us for fu Lulu Wiseman MD Sep 12, 2020 10:28
== END 2020-09-10 18:24 | disposition home or self-care (01) ==
LOC: M ED 13:53
DX: E87.6 Hypokalemia (principal); R10.11 Right upper quadrant pain; N20.0 Calculus of kidney; R00.1 Bradycardia, unspecified; I45.19 Other right bundle-branch block; K27.9 Peptic ulcer, site unspecified, unspecified as acute or chronic, without hemorrhage or perforation; Z87.448 Personal history of other diseases of urinary system; Z87.442 Personal history of urinary calculi; M41.9 Scoliosis, unspecified; E27.1 Primary adrenocortical insufficiency; N80.9 Endometriosis, unspecified; Z79.899 Other long term (current) drug therapy; Z88.6 Allergy status to analgesic agent; Z88.0 Allergy status to penicillin; Z88.2 Allergy status to sulfonamides; Z88.5 Allergy status to narcotic agent; Z88.8 Allergy status to other drugs, medicaments and biological substances
CPT/HCPCS: 71046; 74177; 76705; 80047; 80076; 81001; 82550; 82553; 83605; 83690; 84132; 84484; 84702; 85025; 85610; 85730; 93005; 96361; 96374; 96375; 96376; 99284; C9113; J2405; J3010; Q9967

== ENCOUNTER 2021-02-08 12:50 | Emergency (ER) | payer OTHER ==
[~2021-02-08] VITALS: Ht 170.2 cm; Wt 59.7 kg
[~2021-02-08 12:50] MED LIST changes: +DICY20TA11; +NORT10CA2; +ONDA4TAB6 PO; +PRED5TA; +ZOLM5TAB14
[2021-02-08] MEDS ORDERED: SERT25TA21 PO (13:05)
[2021-02-08] MEDS ORDERED: [UNRECOGNIZED DRUG - CODE] (13:05)
[2021-02-08] MEDS ORDERED: OMEP-221 PO (13:05)
[2021-02-08] MEDS ORDERED: DIVA500T94 PO (13:05)
[2021-02-08] MEDS ORDERED: NS 1,000 ML IV ONE (14:00)
[2021-02-08] MEDS ORDERED: ONDANSETRON 4MG/2ML VIAL IV ONE (14:00)
[2021-02-08 14:47] LABS: BASO # 0.1 10^3/uL (0.0-0.2); BASO % 0.9 % (0.0-1.0); EOS # 0.2 10^3/uL (0.0-0.5); EOS % 3.1 % (0.0-3.0); HEMATOCRIT 42.8 % (36.0-47.0); HEMOGLOBIN 13.5 g/dl (12.0-15.5); LYMPH # 1.7 10^3/uL (1.5-5.0); LYMPH % 30.4 % (24.0-44.0); MEAN CORPUSCULAR HEMOGLOBIN 26.7 pg (27.0-33.0); MEAN CORPUSCULAR HGB CONC 31.5 g/dl (32.0-36.5); MEAN CORPUSCULAR VOLUME 84.6 fl (80.0-96.0); MONO # 0.4 10^3/uL (0.0-0.8); MONO % 7.4 % (2.0-8.0); NEUTROPHILS # 3.2 10^3/uL (1.5-8.5); NEUTROPHILS % 57.8 % (36.0-66.0); PLATELET COUNT, AUTOMATED 195 10^3/uL (150-450); RED BLOOD COUNT 5.06 10^6/uL (4.00-5.40); WHITE BLOOD COUNT 5.5 10^3/uL (4.0-10.0)
[2021-02-08] MEDS ORDERED: fentaNYL 100 MCG/2 ML INJECTION (J3010) IV ONE ×2 (15:00→16:45)
[2021-02-08 15:42] LABS: ALBUMIN 4.2 GM/DL (3.2-5.2); ALT/SGPT 14 U/L (12-78); BILIRUBIN,DIRECT 0.1 MG/DL (0.0-0.2); BILIRUBIN,TOTAL 0.4 MG/DL (0.2-1.0); C REACTIVE PROTEIN QUANTITATIV < 0.30 MG/DL (0.00-0.30); TOTAL PROTEIN 6.9 GM/DL (6.4-8.2)
[2021-02-08 16:02] LABS: ERYTHROCYTE SEDIMENTATION RATE 5 mm/hr (0-20)
[2021-02-08] MEDS ORDERED: ISOVUE-370 76% 100ML VIAL As Ordered ONE (16:07)
--- NOTE | 2021-02-08 16:29 | REP ---
INDICATION: lower abd pain, rectal bleeding/hematochezia. COMPARISON: Multiple the latest 09/10/2020 TECHNIQUE: Standard helical CT scanning of the abdomen and pelvis after administration of 100 cc Isovue 370 intravenously. No oral bowel preparatory contrast was administered prior to the exam. FINDINGS: The lung bases are clear and unchanged. The liver, spleen, pancreas, adrenal glands, and kidneys are within normal limits. The abdominal aorta and para-regions are within normal limits. Limited evaluation of the bowel loops and the mesenteries show no abnormalities. There is no free fluid or free air. There is no mass or adenopathy. Bone window technique throughout the examination shows the osseous structures to be stable and intact. IMPRESSION: CT findings are within normal limits. <Electronically signed by Adrian Elias > 02/08/21 0385
[2021-02-08 16:58] VITALS: BP 141/87
== END 2021-02-08 17:17 | disposition home or self-care (01) ==
LOC: M ED 12:50
DX: K92.1 Melena (principal); Z79.899 Other long term (current) drug therapy; Z88.6 Allergy status to analgesic agent; Z88.0 Allergy status to penicillin; Z88.2 Allergy status to sulfonamides; Z88.5 Allergy status to narcotic agent; Z88.8 Allergy status to other drugs, medicaments and biological substances
CPT/HCPCS: 74177; 80047; 80076; 83605; 85025; 85652; 86140; 86850; 86900; 86901; 96361; 96374; 96375; 96376; 99284; J2405; J3010; Q9967

== ENCOUNTER 2021-03-24 13:47 | Day surgery (SDC) | payer OTHER ==
[~2021-03-24] VITALS: Ht 170.2 cm; Wt 58.1 kg
[~2021-03-24 13:47] MED LIST changes: +DIVA500T94 PO; +NS 1,000 ML IV ONE; +OMEP-221 PO; -PRED5TA; +PRED5TA PO; +SERT25TA21 PO; +SM M250T2 PO; +[UNRECOGNIZED DRUG - CODE] PO; +vitamin b2 PO
[2021-03-24] MEDS ORDERED: propofoL 200 MG/20 ML VIAL As Ordered ONE (14:49)
[2021-03-24] MEDS ORDERED: fentaNYL 100 MCG/2 ML INJECTION (J3010) As Ordered ONE (14:49)
--- NOTE | 2021-03-24 16:55 | ROOR ---
Patient Name: Adrianna Cole Procedure Date: 03/24/2021 4:38 PM Date of : 1990 Age: 30 Room: [facility] Gender: Female Note Status: Finalized Procedure: Upper GI endoscopy Indications: Generalized abdominal pain, Follow-up of peptic ulcer, Suspected irritable bowel syndrome, Endoscopy to assess diarrhea in patient suspected of having disease of the small-bowel Providers: Johnathan Mejia MD Referring MD: AUNPAM BO MD Requesting Provider: Medicines: Monitored Anesthesia Care Complications: No immediate complications. Procedure: Pre-Anesthesia Assessment: - The heart rate, respiratory rate, oxygen saturations, blood pressure, adequacy of pulmonary ventilation, and response to care were monitored throughout the procedure. The Endoscope was introduced through the mouth, and advanced to the second part of duodenum. The upper GI endoscopy was accomplished without difficulty. The patient tolerated the procedure well. Findings: A mild prepyloric deformity was found in the gastric antrum, likely related to previous ulcer disease. This was biopsied with a cold forceps for histology. The exam of the stomach was otherwise normal. (large volume) The examined esophagus was normal. The examined duodenum was normal. Biopsies were taken with a cold forceps for histology. Impression: - A mild prepyloric deformity in the gastric antrum likley related to healed ulcer disease. Biopsied. - The stomach is otherwise normal. No ulcer is seen. Biopsied - Normal esophagus. - Normal examined duodenum. Biopsied. Recommendation: - Continue present medications. - Telephone endoscopist for pathology results in 2 weeks. Procedure Code(s): --- Professional --- 75478, Esophagogastroduodenoscopy, flexible, transoral; with biopsy, single or multiple Diagnosis Code(s): --- Professional --- R19.7, Diarrhea, unspecified K27.9, Peptic ulcer, site unspecified, unspecified as acute or chronic, without hemorrhage or perforation R10.84, Generalized abdominal pain K31.89, Other diseases of stomach and duodenum CPT copyright 2019 [employer]. All rights reserved. The codes documented in this report are preliminary and upon [employer] gold attendant review may be revised to meet current compliance requirements. Johnathan Mejia MD Johnathan Mejia MD 03/24/2021 4:54:39 PM Electronically signed by Johnathan Mejia MD Number of Addenda: 0 Note Initiated On: 03/24/2021 4:38 PM Estimated Blood Loss: Estimated blood loss: none.
--- NOTE | 2021-03-24 17:24 | ROOR ---
Patient Name: Adrianna Cole Procedure Date: 03/24/2021 4:38 PM Date of : 1990 Age: 30 Room: [facility] Gender: Female Note Status: Finalized Procedure: Colonoscopy Indications: Generalized abdominal pain, Hematochezia, Suspected irritable bowel syndrome Providers: Johnathan Mejia MD Referring MD: ANUPAM BO MD Requesting Provider: Medicines: Monitored Anesthesia Care Complications: No immediate complications. Procedure: Pre-Anesthesia Assessment: - The heart rate, respiratory rate, oxygen saturations, blood pressure, adequacy of pulmonary ventilation, and response to care were monitored throughout the procedure. The Colonoscope was introduced through the anus and advanced to 15 cm into the ileum. The colonoscopy was performed without difficulty. The patient tolerated the procedure well. The quality of the bowel preparation was adequate. Findings: The perianal and digital rectal examinations were normal. Small Internal Hemorrhoids. The colon (entire examined portion) appeared normal. The terminal ileum appeared normal. Biopsies for histology were taken with a cold forceps from the entire colon for evaluation of microscopic colitis. Fluid aspiration for microbiology was performed. Retroflexion in the right colon was performed. Impression: - Small Internal Hemorrhoids. - The entire colon is normal. - The terminal ileum x 15 cm was normal. - Biopsies were taken with a cold forceps for evaluation of microscopic colitis. - Fluid aspiration for GI panel was performed. - (Irritable Bowel Syndrome/IBS suspected.) Recommendation: - Telephone endoscopist for pathology results in 2 weeks. - Imodium 1 tablet PO BID. - Imodium 2 tablets PO BID. Procedure Code(s): --- Professional --- 06827, Colonoscopy, flexible; with biopsy, single or multiple Diagnosis Code(s): --- Professional --- K92.1, Melena (includes Hematochezia) R10.84, Generalized abdominal pain CPT copyright 2019 [employer]. All rights reserved. The codes documented in this report are preliminary and upon commercial sales specialist review may be revised to meet current compliance requirements. Johnathan Mejia MD Johnathan Mejia MD 03/24/2021 5:24:34 PM Electronically signed by Johnathan Mejia MD Number of Addenda: 0 Note Initiated On: 03/24/2021 4:38 PM Estimated Blood Loss: Estimated blood loss: none.
[2021-03-24 17:30] VITALS: BP 133/87
== END 2021-03-24 17:43 | disposition home or self-care (01) ==
LOC: M OPP 13:47
PROVIDERS: ATTEND Internal Medicine Gastroenterology
DX: K64.0 First degree hemorrhoids (principal); K92.1 Melena; R10.84 Generalized abdominal pain; K27.9 Peptic ulcer, site unspecified, unspecified as acute or chronic, without hemorrhage or perforation; K31.89 Other diseases of stomach and duodenum; R19.7 Diarrhea, unspecified; Z79.899 Other long term (current) drug therapy; Z88.0 Allergy status to penicillin; Z88.2 Allergy status to sulfonamides; Z88.5 Allergy status to narcotic agent; Z88.8 Allergy status to other drugs, medicaments and biological substances
CPT/HCPCS: 43239; 45380; 87505; 88305; J3010

== ENCOUNTER → 2021-04-03 | Outpatient (CLI) | payer OTHER ==
[~2021-04-03] MED LIST changes: -NS 1,000 ML IV ONE
--- NOTE | 2021-04-05 07:07 | REP ---
INDICATION: GASTRIC ULCER COMPARISON: None. TECHNIQUE: Real time solitario scale and color Doppler ultrasound examination using curved array transducer. FINDINGS: Ultrasound examination was performed to evaluate for median arcuate ligament syndrome with the given history of prior ligament release. Abdominal aorta demonstrates normal wave pattern and velocity of 131 cm/sec. Celiac axis on inspiration and expiration demonstrates velocity of 205 and 244 cm/sec respectively with a stable angle of 36-37 degrees. Superior mesenteric artery at the origin on inspiration and expiration demonstrates velocity of 211 and 270 cm/sec respectively with a maintained angle measuring between 19 and 23 degrees. Superior mesenteric artery distally demonstrates velocities of 165 and 199 cm/sec respectively. IMPRESSION: Findings are within normal range. <Electronically signed by Rhys Banegas > 04/05/21 0721
== END ==
LOC: M RAD 08:26
PROVIDERS: ATTEND Internal Medicine Gastroenterology
DX: K25.9 Gastric ulcer, unspecified as acute or chronic, without hemorrhage or perforation (principal)

== ENCOUNTER 2021-05-03 17:25 | Emergency (ER) | payer OTHER ==
[~2021-05-03] VITALS: Ht 170.2 cm; Wt 61.4 kg
[2021-05-03 20:07] LABS: BASO # 0.1 10^3/uL (0.0-0.2); BASO % 0.9 % (0.0-1.0); EOS # 0.1 10^3/uL (0.0-0.5); EOS % 1.7 % (0.0-3.0); HEMATOCRIT 38.7 % (36.0-47.0); HEMOGLOBIN 12.8 g/dl (12.0-15.5); LYMPH # 1.6 10^3/uL (1.5-5.0); LYMPH % 28.2 % (24.0-44.0); MEAN CORPUSCULAR HEMOGLOBIN 29.1 pg (27.0-33.0); MEAN CORPUSCULAR HGB CONC 33.1 g/dl (32.0-36.5); MONO # 0.3 10^3/uL (0.0-0.8); MONO % 4.5 % (2.0-8.0); NEUTROPHILS # 3.7 10^3/uL (1.5-8.5); NEUTROPHILS % 64.5 % (36.0-66.0); PLATELET COUNT, AUTOMATED 268 10^3/uL (150-450); WHITE BLOOD COUNT 5.8 10^3/uL (4.0-10.0)
[2021-05-03 20:31] LABS: ALT/SGPT 18 U/L (12-78); BILIRUBIN,DIRECT < 0.1 MG/DL (0.0-0.2); BILIRUBIN,TOTAL 0.3 MG/DL (0.2-1.0); BLOOD UREA NITROGEN 10 MG/DL (7-18); CALCIUM LEVEL 9.4 MG/DL (8.5-10.1); CARBON DIOXIDE LEVEL 28 MEQ/L (21-32); CHLORIDE LEVEL 106 MEQ/L (98-107); CREATININE FOR GFR 0.74 MG/DL (0.55-1.30); GLOMERULAR FILTRATION RATE > 60.0 (>60); GLUCOSE, FASTING 86 MG/DL (70-100); LIPASE 97 U/L (73-393); POTASSIUM SERUM 3.8 MEQ/L (3.5-5.1); SODIUM LEVEL 141 MEQ/L (136-145); TOTAL PROTEIN 6.8 GM/DL (6.4-8.2)
[2021-05-03 20:37] LABS: HCG, SERUM QUALITATIVE NEGATIVE (NEGATIVE)
[2021-05-03] MEDS ORDERED: ONDANSETRON 4 MG ORAL DISINTEGRATING TAB PO ONE (23:00)
[2021-05-03] MEDS ORDERED: HYDROCORTISONE 100 MG/2 ML VIAL (J1720 PER 1) IV ONE (23:05)
[2021-05-03] MEDS ORDERED: ONDANSETRON 4MG/2ML VIAL IV ONE (23:05)
[2021-05-03] MEDS ORDERED: HYDROMORPHONE HCL 0.5 MG/ 0.5 ML SYRINGE (J1170 PER 1) IV PRN (23:05)
[2021-05-03 23:37] VITALS: BP 127/69
== END 2021-05-03 23:40 | disposition home or self-care (01) ==
LOC: M ED 17:25
DX: E27.2 Addisonian crisis (principal); Z87.01 Personal history of pneumonia (recurrent); Z79.899 Other long term (current) drug therapy; Z88.6 Allergy status to analgesic agent; Z88.0 Allergy status to penicillin; Z88.2 Allergy status to sulfonamides; Z88.8 Allergy status to other drugs, medicaments and biological substances; Z88.5 Allergy status to narcotic agent
CPT/HCPCS: 80048; 80076; 83690; 84703; 85025; 96374; 96375; 99284; J1170; J1720; J2405

== ENCOUNTER 2021-05-25 05:58 | Observation (INO) | payer OTHER ==
--- NOTE | 2021-05-14 08:36 | HPE ---
HISTORY AND PHYSICAL DATE OF ANTICIPATED ADMISSION: 05/25/2021 HISTORY OF PRESENT ILLNESS: This lady is a 30-year-old female patient who comes with history of cervical remnant syndrome, having a period every month after apparently having a laparoscopic-assisted vaginal hysterectomy. She was unaware that her cervix was still present and she continued having periods on a regular basis. Her past history is that she has Leif's disease and is basically well controlled on steroids. However, she did have an addisonian crisis on May 03. Details are unavailable. Her past history is [place]'s disease, a history of GI ulcers, history of pyelonephritis, history of celiac artery compression syndrome, history of a laparoscopy in 2005, history of laparoscopy in 2007 for a left ovarian cystectomy, a laparoscopy for right ovarian cystectomy, another laparoscopy for right ovarian endometrioma removal, a laparoscopy for tubal ligation, a cholecystectomy laparoscopically and apparently an LAVH which was probably a subtotal hysterectomy, leaving the cervix and also tonsil and adenoidectomy. MEDICATIONS: 1. Prednisone 5 mg daily. 2. Fludrocortisone 0.1 mg 1/2 tab daily. The operative procedure is going to be a trachelectomy, cystoscopy and laparoscopy for cervical remnant syndrome. Medical history in review, does not have glaucoma, no thyroid, no hypertension, no heart disease, no lung disease, does not smoke, no diabetes, does have a GI ulcer issue which is stable at the present time, no liver, no kidney. She is presently on steroids. She has no neurological, back or extremity issues. Genitourinary issues are related to her cervix being present and she has no bleeding disorders. The rest of the examination is unremarkable, normocephalic, atraumatic neck, full range of motion, pupils equal and reactive to light. Distal pulses are symmetric, no evidence of DVT, PE or superficial phlebitis. Chest is clear bilaterally at the bases, no wheezes or rhonchi, no CVA tenderness. Abdomen is soft. Four quadrant bowel sounds are noted. She has incisional sites from her laparoscopic surgeries. No rashes, lesions, pruritus, no arthralgias, myalgias, no complaint of joint pain, no complaint of cough, wheeze, shortness of breath or dyspnea on exertion, no nausea, vomiting, diarrhea or constipation. No urgency or frequency. Pelvic examination: Anterior, posterior and lateral raphael are complete. Cervix is present, does have good mobility and has some descent. Her temperature is 97.8, pulse 84, blood pressure 110/59. Respirations are 18. She weighs 137 lb and she is 5'7". We discussed the risks and benefits of surgery including a high risk of perforation or entry into the bowel, the bladder, ureteric injury, inability to complete the procedure and the postop complication of poor healing because of her significant history of use of steroids, also a high risk of addisonian crisis. We discussed the case with Dr. Woods who suggested we just get an EKG as well as a complete metabolic profile. We spent 40 minutes with examination and evaluation of the patient and consultation. The patient signed a consent form. All questions were answered. Surgery is planned for May 25, 2021. We expect this patient to be a 23-hour observation status.
[2021-05-25] VITALS (7 sets, daily range): BP systolic 121–134; BP diastolic 68–90
[~2021-05-25] VITALS: Ht 170.2 cm; Wt 59.5 kg
[2021-05-25] MEDS ORDERED: LIDOCAINE 1% MDV 20ML VIAL SQ PRN (06:00)
[2021-05-25] MEDS ORDERED: LR 1,000 ML IV ONE (06:00)
[2021-05-25] MEDS ORDERED: ceFAZolin SOD 1 GM in D5W MINI-BAG PLUS 50 ML IV ONE (06:00)
[2021-05-25] MEDS ORDERED: HYDROCORTISONE 100 MG/2 ML VIAL (J1720 PER 1) IV ONE (06:00)
[2021-05-25 06:39] LABS: HEMATOCRIT 38.3 % (36.0-47.0); HEMOGLOBIN 12.8 g/dl (12.0-15.5); MEAN CORPUSCULAR HEMOGLOBIN 29.5 pg (27.0-33.0); MEAN CORPUSCULAR HGB CONC 33.4 g/dl (32.0-36.5); MEAN CORPUSCULAR VOLUME 88.2 fl (80.0-96.0); PLATELET COUNT, AUTOMATED 228 10^3/uL (150-450); RED BLOOD COUNT 4.34 10^6/uL (4.00-5.40); WHITE BLOOD COUNT 5.5 10^3/uL (4.0-10.0)
[2021-05-25] MEDS ORDERED: MIDAZOLAM INJ 2MG/2ML VIAL (J2250 PER 1MG) As Ordered ONE (06:48)
[2021-05-25] MEDS ORDERED: fentaNYL 250 MCG/5 ML INJECTION (J3010) As Ordered ONE (06:48)
[2021-05-25] MEDS ORDERED: ACETAMINOPHEN 1000MG 100ML IV BTL (OFIRMEV) (J0131 PER 10MG) As Ordered ONE (06:48)
[2021-05-25] MEDS ORDERED: ePHEDrine SULFATE 25 MG/5 ML(5MG/ML) SYRINGE As Ordered ONE (06:48)
[2021-05-25] MEDS ORDERED: PHENYLephrine 500MCG 5ML (100MCG/ML) SYRINGE As Ordered ONE (06:48)
[2021-05-25] MEDS ORDERED: ROCURONIUM BROMIDE 50 MG/5 ML VIAL As Ordered ONE (06:49)
[2021-05-25] MEDS ORDERED: propofoL 200 MG/20 ML VIAL As Ordered ONE (06:49)
[2021-05-25] MEDS ORDERED: dexameTHASONE 4 MG/ML 1ML VIAL (J1100 PER 1MG) As Ordered ONE (06:49)
[2021-05-25] MEDS ORDERED: SUGAMMADEX SODIUM 500 MG/5 ML VIAL (BRIDION) As Ordered ONE (06:49)
[2021-05-25] MEDS ORDERED: ONDANSETRON 4MG/2ML VIAL As Ordered ONE ×2 (06:49→10:09)
[2021-05-25] MEDS ORDERED: LIDOCAINE 2% 100MG/5ML SDV (FOR ANES.) As Ordered ONE (06:49)
[2021-05-25 07:02] LABS: ALBUMIN 4.2 GM/DL (3.2-5.2); ALT/SGPT 16 U/L (12-78); BILIRUBIN,TOTAL 0.3 MG/DL (0.2-1.0); BLOOD UREA NITROGEN 15 MG/DL (7-18); CALCIUM LEVEL 9.2 MG/DL (8.5-10.1); CARBON DIOXIDE LEVEL 29 MEQ/L (21-32); CHLORIDE LEVEL 110 MEQ/L (98-107); CREATININE FOR GFR 0.83 MG/DL (0.55-1.30); GLOMERULAR FILTRATION RATE > 60.0 (>60); GLUCOSE, FASTING 95 MG/DL (70-100); SODIUM LEVEL 142 MEQ/L (136-145); TOTAL PROTEIN 6.8 GM/DL (6.4-8.2)
[2021-05-25] MEDS ORDERED: BUPIVACAINE HCL 0.5% 10ML VIAL As Ordered ONE (07:15)
[2021-05-25] MEDS ORDERED: LIDOCAINE PRES-FREE 2% 10ML AMP As Ordered ONE (07:15)
[2021-05-25] MEDS ORDERED: HYDROCORTISONE 1% CREAM 30 GM As Ordered ONE (07:15)
[2021-05-25] MEDS ORDERED: ACETAMINOPHEN 650 MG SUPP As Ordered ONE (07:16)
[2021-05-25] MEDS ORDERED: METHYLENE BLUE 0.5% (5MG/ML) 10 ML AMP (PROVAYBLUE) As Ordered ONE (07:17)
[2021-05-25] MEDS ORDERED: SCOPOLAMINE 1MG TRANSDERMAL PATCH TOP ONE (07:25)
[2021-05-25] MEDS ORDERED: BUPIVACAINE HCL 0.25% 10ML VIAL As Ordered ONE (07:55)
[2021-05-25] MEDS ORDERED: ESTROGENS VAGINAL CREAM 30GM As Ordered ONE (07:56)
[2021-05-25] MEDS ORDERED: FLUORESCEIN 10% (100MG/ML) 5 ML VIAL As Ordered ONE (09:31)
[2021-05-25] MEDS ORDERED: fentaNYL 100 MCG/2 ML INJECTION (J3010) As Ordered ONE (09:58)
[2021-05-25] MEDS: fentaNYL 100 MCG/2 ML INJECTION (J3010) IV PRN ×4 (10:01→10:36)
[2021-05-25] MEDS ORDERED: oxyCODONE 5MG TAB PO PRN (10:10)
[2021-05-25] MEDS ORDERED: LR 1,000 ML IV SCH (10:10)
[2021-05-25] MEDS ORDERED: ONDANSETRON 4MG/2ML VIAL IV PRN ×2 (10:10→10:45)
[2021-05-25] MEDS: LR 1,000 ML IV SCH ×2 (10:45→18:29)
[2021-05-25] MEDS ORDERED: zolPIDEM TARTRATE 5 MG TAB PO PRN (10:45)
[2021-05-25] MEDS ORDERED: PILL CUTTER 1 EACH XX PRN (10:50)
[2021-05-25] MEDS: HYDROMORPHONE HCL 0.5 MG/ 0.5 ML SYRINGE (J1170 PER 1) IV PRN ×4 (11:05→11:41)
[2021-05-25] MEDS: PROMETHAZINE INJ 25 MG/ML VIAL (J2550) IV PRN ×2 (11:06→11:55)
[2021-05-25] MEDS: ONDANSETRON 4MG/2ML VIAL IV PRN ×3 (14:50→23:01)
[2021-05-25] MEDS ORDERED: PROMETHAZINE INJ 25 MG/ML VIAL (J2550) IV ONE (15:30)
[2021-05-25] MEDS: NORCO, ANEXSIA 5/325MG TABLET (HYDROcodone/ACETAMINOPHEN) PO PRN (16:57)
[2021-05-25 17:32] LABS: HEMOGLOBIN 10.7 g/dl (12.0-15.5); MEAN CORPUSCULAR HEMOGLOBIN 29.5 pg (27.0-33.0); MEAN CORPUSCULAR HGB CONC 33.4 g/dl (32.0-36.5); MEAN CORPUSCULAR VOLUME 88.2 fl (80.0-96.0); PLATELET COUNT, AUTOMATED 195 10^3/uL (150-450); RED BLOOD COUNT 3.63 10^6/uL (4.00-5.40)
[2021-05-25] MEDS ORDERED: HYDROMORPHONE HCL 0.5 MG/ 0.5 ML SYRINGE (J1170 PER 1) IV ONE (18:45)
--- NOTE | 2021-05-25 18:45 | ECGEPIP ---
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 RSr in V1/V2 is now no longer present Electronically Signed on 05-25-2021 18:44:46 EDT by Nathaniel Thomas
[2021-05-25] MEDS: ACETAMINOPH W/CODEINE #3 TAB UD PO PRN (21:12)
[2021-05-26 00:06] VITALS: BP 129/79
[2021-05-26] MEDS: NORCO, ANEXSIA 5/325MG TABLET (HYDROcodone/ACETAMINOPHEN) PO PRN ×2 (00:14→06:47)
[2021-05-26] MEDS: LR 1,000 ML IV SCH ×2 (02:11→09:06)
[2021-05-26] MEDS: ACETAMINOPH W/CODEINE #3 TAB UD PO PRN ×2 (02:51→09:08)
[2021-05-26] MEDS: ONDANSETRON 4MG/2ML VIAL IV PRN ×2 (02:52→07:53)
[2021-05-26 04:48] VITALS: BP 109/57
[2021-05-26 07:58] VITALS: BP 114/62
[2021-05-26] MEDS ORDERED: FLUDROCORTISONE ACETATE 0.1 MG TAB PO SCH (09:00)
[2021-05-26] MEDS ORDERED: predniSONE 5 MG TAB PO SCH (09:00)
[2021-05-26] MEDS ORDERED: FLUD0.1T PO (09:22)
[2021-05-26] MEDS ORDERED: PRED5TA PO (09:22)
[2021-05-26] MEDS ORDERED: ACET-716 PO (09:22)
--- NOTE | 2021-05-26 10:39 | RO ---
OPERATIVE NOTE DATE OF OPERATION: 05/25/2021 PREOPERATIVE DIAGNOSIS: Cervical remnant syndrome. POSTOPERATIVE DIAGNOSIS: Cervical remnant syndrome. OPERATION PROPOSED: Trachelectomy, cystoscopy, laparoscopy. OPERATION PERFORMED: Trachelectomy, cytoscopy. SURGEON: Oleksandr Mathews MD GAS FITTER HELPER: Dr. Gomez, for extraction, retraction and visualization without which the procedure could not be completed. ANESTHESIA: General plus local anesthetic for intraperitoneal procedures. ESTIMATED BLOOD LOSS: 400 mL. DESCRIPTION OF PROCEDURE: After adequate time out prepped and draped in lithotomy position, Winters catheter in the bladder draining clear urine. Acetaminophen suppository 1300 mg per rectum. Sequentials in place. Antibiotics appropriately preoperatively. Weighted speculum in the vagina, single tooth tenaculum on anterior and posterior lips of cervix. There was some degree of cervical descent. We then circumscribed the vaginal mucosa around the bladder and rectum, pushing back posteriorly and pushing anteriorly until we were able to establish the peritoneal space. We got in posteriorly quite easily, anteriorly was more difficult because of scarring. Makayla clamps were placed on the uterosacrals, clamped, cut and ligating. We then went up the sidewalls of the cervix to the top of the cervical canal after which clamp, cut and ligating as well went. We got in anteriorly and posteriorly, visualized the bowel and bladder and there was no evidence of injury. We then went ahead and with the last pedicle removed the cervix completely, sent off to pathology under separate cover. The two top pedicles were ligated in the midline. We identified the posterior peritoneum and the anterior peritoneum, we closed in two layers circumscribing the peritoneum and closing it with a bowel not in the area. We closed the vaginal mucosa with running interlocked stitch all the way from one angle to the other angle, securing hemostasis. We irrigated to make sure there was no evidence of active bleeding. Cystoscopy was performed. The bladder was identified in full. There were no leaks and good integrity. The os were noted. Flow was noted from both ureteral orifices. Winters catheter was left in. Vaginal pack with Premarin Cream was placed and the patient was sent to recovery in good condition. cc: Calion OB
== END 2021-05-26 09:56 | disposition home or self-care (01) ==
LOC: M OR 05:58 → INTOOBSV 05:58 → M PED 12:55
PROVIDERS: ADMIT Obstetrics & Gynecology; ATTEND Obstetrics & Gynecology
DX: N72 Inflammatory disease of cervix uteri (principal); G43.909 Migraine, unspecified, not intractable, without status migrainosus; K21.9 Gastro-esophageal reflux disease without esophagitis; E27.1 Primary adrenocortical insufficiency; Z79.52 Long term (current) use of systemic steroids; Z79.899 Other long term (current) drug therapy; Z88.0 Allergy status to penicillin; Z88.5 Allergy status to narcotic agent; Z88.8 Allergy status to other drugs, medicaments and biological substances
CPT/HCPCS: 36415; 57530; 80053; 85027; 88304; 93005; 96374; 96375; 96376; J0690; J1100; J1170; J1720; J2250; J2370; J2405; J3010; J7512

== ENCOUNTER → 2021-12-14 | Outpatient (CLI) | payer OTHER ==
[~2021-12-14] MED LIST changes: +ACET-716 PO; -DICY20TA11; +DICY20TA20; -OMEP-221 PO; +OMEP40CA5 PO
== END ==
LOC: M PLAIMG 10:31
PROVIDERS: ATTEND Physician Assistant Medical
DX: J32.9 Chronic sinusitis, unspecified (principal)

== ENCOUNTER 2021-12-29 15:55 | Emergency (ER) | payer OTHER ==
[~2021-12-29] VITALS: Ht 170.2 cm; Wt 59.5 kg
[2021-12-29 18:12] LABS: BASO % 0.3 % (0.0-1.0); EOS # 0.1 10^3/uL (0.0-0.5); EOS % 0.6 % (0.0-3.0); HEMATOCRIT 40.3 % (36.0-47.0); HEMOGLOBIN 13.3 g/dl (12.0-15.5); LYMPH # 1.8 10^3/uL (1.5-5.0); MEAN CORPUSCULAR HEMOGLOBIN 28.5 pg (27.0-33.0); MEAN CORPUSCULAR VOLUME 86.5 fl (80.0-96.0); MONO # 0.5 10^3/uL (0.0-0.8); MONO % 4.6 % (2.0-8.0); NEUTROPHILS # 8.3 10^3/uL (1.5-8.5); NEUTROPHILS % 77.2 % (36.0-66.0); PLATELET COUNT, AUTOMATED 280 10^3/uL (150-450); RED BLOOD COUNT 4.66 10^6/uL (4.00-5.40); WHITE BLOOD COUNT 10.8 10^3/uL (4.0-10.0)
[2021-12-29 18:36] LABS: ALBUMIN 4.4 GM/DL (3.2-5.2); ALT/SGPT 18 U/L (12-78); BILIRUBIN,DIRECT 0.1 MG/DL (0.0-0.2); BILIRUBIN,TOTAL 0.5 MG/DL (0.2-1.0); BLOOD UREA NITROGEN 11 MG/DL (7-18); CALCIUM LEVEL 9.6 MG/DL (8.5-10.1); CARBON DIOXIDE LEVEL 28 MEQ/L (21-32); CHLORIDE LEVEL 103 MEQ/L (98-107); CREATININE FOR GFR 1.02 MG/DL (0.55-1.30); GLOMERULAR FILTRATION RATE > 60.0 (>60); GLUCOSE, FASTING 86 MG/DL (70-100); LIPASE 114 U/L (73-393); POTASSIUM SERUM 4.4 MEQ/L (3.5-5.1); SODIUM LEVEL 137 MEQ/L (136-145); TOTAL PROTEIN 7.4 GM/DL (6.4-8.2)
[2021-12-29 18:45] LABS: HCG, SERUM QUALITATIVE NEGATIVE (NEGATIVE)
[2021-12-29] MEDS ORDERED: NS 1,000 ML IV ONE (18:55)
[2021-12-29] MEDS ORDERED: ONDANSETRON 4MG/2ML VIAL IV ONE (18:55)
[2021-12-29] MEDS ORDERED: NORCO, ANEXSIA 5/325MG TABLET (HYDROcodone/ACETAMINOPHEN) PO ONE (18:55)
[2021-12-29] MEDS ORDERED: HYDROCORTISONE 100 MG/2 ML VIAL (J1720 PER 1) IV ONE (18:55)
[2021-12-29] MEDS ORDERED: ONDA4TAB6 PO (20:46)
[2021-12-29 20:59] VITALS: BP 128/63
== END 2021-12-29 21:01 | disposition home or self-care (01) ==
LOC: M ED 15:55
DX: K52.9 Noninfective gastroenteritis and colitis, unspecified (principal); E27.1 Primary adrenocortical insufficiency; Z88.0 Allergy status to penicillin; Z88.1 Allergy status to other antibiotic agents; Z88.2 Allergy status to sulfonamides; Z88.6 Allergy status to analgesic agent; Z88.8 Allergy status to other drugs, medicaments and biological substances
CPT/HCPCS: 80048; 80076; 81001; 83690; 84703; 85025; 96361; 96374; 99284; J1720; J2405

== ENCOUNTER 2022-05-23 15:49 | Emergency (ER) | payer OTHER ==
[~2022-05-23] VITALS: Ht 170.2 cm; Wt 59.1 kg
[2022-05-23] MEDS ORDERED: EMGA120I (16:02)
[2022-05-23 17:31] LABS: BASO % 0.5 % (0.0-1.0); EOS % 0.5 % (0.0-3.0); HEMATOCRIT 43.5 % (36.0-47.0); HEMOGLOBIN 14.6 g/dl (12.0-15.5); LYMPH # 1.3 10^3/uL (1.5-5.0); LYMPH % 19.1 % (24.0-44.0); MEAN CORPUSCULAR HEMOGLOBIN 30.5 pg (27.0-33.0); MEAN CORPUSCULAR HGB CONC 33.6 g/dl (32.0-36.5); MONO # 0.3 10^3/uL (0.0-0.8); MONO % 4.7 % (2.0-8.0); NEUTROPHILS # 4.9 10^3/uL (1.5-8.5); PLATELET COUNT, AUTOMATED 259 10^3/uL (150-450); RED BLOOD COUNT 4.78 10^6/uL (4.00-5.40); WHITE BLOOD COUNT 6.5 10^3/uL (4.0-10.0)
[2022-05-23] MEDS ORDERED: PROMETHAZINE 25 MG TAB PO ONE (18:25)
[2022-05-23] MEDS ORDERED: traMADol 50 MG TAB PO ONE (18:25)
[2022-05-23 18:34] LABS: ALBUMIN 4.6 GM/DL (3.2-5.2); ALT/SGPT 21 U/L (12-78); BILIRUBIN,DIRECT < 0.1 MG/DL (0.0-0.2); BILIRUBIN,TOTAL 0.4 MG/DL (0.2-1.0); BLOOD UREA NITROGEN 9 MG/DL (7-18); CALCIUM LEVEL 10.1 MG/DL (8.5-10.1); CARBON DIOXIDE LEVEL 30 MEQ/L (21-32); CHLORIDE LEVEL 106 MEQ/L (98-107); CREATININE FOR GFR 0.78 MG/DL (0.55-1.30); GLOMERULAR FILTRATION RATE > 60.0 (>60); GLUCOSE, FASTING 89 MG/DL (70-100); LIPASE 120 U/L (73-393); POTASSIUM SERUM 4.2 MEQ/L (3.5-5.1); SODIUM LEVEL 141 MEQ/L (136-145); TOTAL PROTEIN 7.4 GM/DL (6.4-8.2)
[2022-05-23 18:41] LABS: HCG, SERUM QUALITATIVE NEGATIVE (NEGATIVE)
[2022-05-23] MEDS ORDERED: ISOVUE-370 76% 100ML VIAL As Ordered ONE (18:57)
[2022-05-23 19:03] VITALS: BP 138/76
[2022-05-23] MEDS ORDERED: PERCOCET 5MG/325MG TAB PO ONE (20:25)
[2022-05-23] MEDS ORDERED: ONDANSETRON 4MG 2ML VIAL IV ONE (20:25)
[2022-05-23] MEDS ORDERED: TRAM50TA2 PO (21:34)
[2022-05-23] MEDS ORDERED: PROM50TA4 PO (21:34)
== END 2022-05-23 22:02 | disposition home or self-care (01) ==
LOC: M ED 15:49
DX: R10.9 Unspecified abdominal pain (principal); R11.2 Nausea with vomiting, unspecified; R19.7 Diarrhea, unspecified; E27.1 Primary adrenocortical insufficiency; Z88.6 Allergy status to analgesic agent; Z88.0 Allergy status to penicillin; Z88.2 Allergy status to sulfonamides; Z88.5 Allergy status to narcotic agent; Z88.8 Allergy status to other drugs, medicaments and biological substances
CPT/HCPCS: 71275; 80048; 80076; 81001; 83690; 84484; 84703; 85025; 93005; 93971; 96374; 99284; J2405; Q9967

== ENCOUNTER 2022-08-23 09:21 | Emergency (ER) | payer OTHER ==
[~2022-08-23] VITALS: Ht 170.2 cm; Wt 59.5 kg
[2022-08-23 09:21] VITALS: BP 152/93
[~2022-08-23 09:21] MED LIST changes: +EMGA120I; +PROM50TA4 PO; +TRAM50TA2 PO
== END 2022-08-23 10:08 | disposition left against medical advice (07) ==
LOC: M ED 09:21
DX: Z53.21 Procedure and treatment not carried out due to patient leaving prior to being seen by health care provider (principal)

== ENCOUNTER 2022-08-31 15:38 | Emergency (ER) | payer OTHER ==
[~2022-08-31] VITALS: Ht 170.2 cm; Wt 47.7 kg
[2022-08-31 16:09] VITALS: BP 135/80
[2022-08-31 16:26] LABS: BASO % 0.3 % (0.0-1.0); EOS % 0.4 % (0.0-3.0); LYMPH # 0.9 10^3/uL (1.5-5.0); LYMPH % 12.7 % (24.0-44.0); MEAN CORPUSCULAR HGB CONC 34.2 g/dl (32.0-36.5); MEAN CORPUSCULAR VOLUME 90.5 fl (80.0-96.0); MONO # 0.3 10^3/uL (0.0-0.8); MONO % 3.4 % (2.0-8.0); NEUTROPHILS % 82.9 % (36.0-66.0); PLATELET COUNT, AUTOMATED 245 10^3/uL (150-450); WHITE BLOOD COUNT 7.3 10^3/uL (4.0-10.0)
[2022-08-31 17:08] LABS: BLOOD UREA NITROGEN 6 MG/DL (7-18); CALCIUM LEVEL 8.9 MG/DL (8.5-10.1); CARBON DIOXIDE LEVEL 27 MEQ/L (21-32); CHLORIDE LEVEL 108 MEQ/L (98-107); CREATININE FOR GFR 0.77 MG/DL (0.55-1.30); GLOMERULAR FILTRATION RATE > 60.0 (>60); GLUCOSE, FASTING 91 MG/DL (70-100); SODIUM LEVEL 140 MEQ/L (136-145)
== END 2022-08-31 19:58 | disposition left against medical advice (07) ==
LOC: M ED 15:38 → EDBD 15:38 → M ED 19:58
DX: Z53.21 Procedure and treatment not carried out due to patient leaving prior to being seen by health care provider (principal)

== ENCOUNTER → 2022-10-24 | Outpatient (REF) | payer OTHER ==
[2022-10-24 17:25] LABS: APPEARANCE, URINE MANUAL CLEAR (CLEAR); BILIRUBIN, URINE MANUAL NEGATIVE (NEGATIVE); BLOOD URINE MANUAL TRACE (NEGATIVE); COLOR, URINE MANUAL YELLOW (YELLOW); GLUCOSE, URINE (UA) MANUAL NEGATIVE (NEGATIVE); KETONE, URINE MANUAL NEGATIVE (NEGATIVE); LEUKOCYTE ESTERASE, URINE MAN NEGATIVE (NEGATIVE); NITRITE, URINE MANUAL NEGATIVE (NEGATIVE); PROTEIN, URINE MANUAL TRACE mg/dL (NEGATIVE); SPECIFIC GRAVITY,URINE MANUAL 1.025 (1.002-1.035); UROBILINOGEN, URINE MANUAL NORMAL (NORMAL)
[2022-10-24 18:00] LABS: SQUAMOUS EPITHELIAL CELL URINE SMALL AMOUNT /hpf (SMALL AMT)
[2022-10-24 18:01] LABS: BACTERIA, URINE SMALL AMOUNT; CALCIUM OXALATE CRYSTALS,URINE MOD AMOUNT /hpf; HYALINE CAST, URINE NONE SEEN /lpf (0-1); MUCUS, URINE MOD AMOUNT (NEGATIVE)
== END ==
LOC: M SMT 16:56
PROVIDERS: ATTEND Physician Assistant
DX: R82.89 Other abnormal findings on cytological and histological examination of urine (principal); N20.2 Calculus of kidney with calculus of ureter

== ENCOUNTER 2023-02-13 10:15 | Observation (INO) | payer OTHER ==
[~2023-02-13] VITALS: Ht 170.2 cm; Wt 56.2 kg
[2023-02-13] VITALS (7 sets, daily range): BP systolic 117–134; BP diastolic 78–92
[~2023-02-13 10:15] MED LIST changes: +HYDROCORTISONE 100MG/2ML VIAL IV ONE; +LEXA1TAB2 PO; +[UNRECOGNIZED DRUG - OTHER] IM
[2023-02-13] MEDS ORDERED: ROCURONIUM BROMIDE 50MG/5ML VIAL As Ordered ONE ×2 (10:38→13:15)
[2023-02-13] MEDS ORDERED: fentaNYL 100 MCG/2 ML INJECTION As Ordered ONE ×2 (10:38→13:59)
[2023-02-13] MEDS ORDERED: MIDAZOLAM INJ 2MG/2ML VIAL As Ordered ONE (10:38)
[2023-02-13] MEDS ORDERED: SUGAMMADEX SODIUM 500 MG/5 ML VIAL (BRIDION) As Ordered ONE (10:38)
[2023-02-13] MEDS ORDERED: ONDANSETRON 4MG 2ML VIAL As Ordered ONE (10:38)
[2023-02-13] MEDS ORDERED: propofoL 200 MG/20 ML VIAL As Ordered ONE (10:38)
[2023-02-13] MEDS ORDERED: LIDOCAINE 2% 100MG/5ML SDV (FOR ANES.) As Ordered ONE (10:41)
[2023-02-13 11:02] LABS: HEMATOCRIT 38.1 % (36.0-47.0); HEMOGLOBIN 12.5 g/dl (12.0-15.5); MEAN CORPUSCULAR HEMOGLOBIN 30.8 pg (27.0-33.0); MEAN CORPUSCULAR HGB CONC 32.8 g/dl (32.0-36.5); MEAN CORPUSCULAR VOLUME 93.8 fl (80.0-96.0); PLATELET COUNT, AUTOMATED 199 10^3/uL (150-450); RED BLOOD COUNT 4.06 10^6/uL (4.00-5.40); WHITE BLOOD COUNT 7.5 10^3/uL (4.0-10.0)
[2023-02-13] MEDS ORDERED: LIDOCAINE 1% SDV 5ML VIAL SC PRN (11:15)
[2023-02-13] MEDS ORDERED: LR 1,000 ML IV SCH ×3 (11:15→14:00)
[2023-02-13] MEDS ORDERED: SCOPOLAMINE 1MG TRANSDERMAL PATCH TOP ONE (11:30)
[2023-02-13] MEDS ORDERED: methylPREDNISolone 40MG 1ML VIAL As Ordered ONE (12:57)
[2023-02-13] MEDS ORDERED: BUPIVACAINE HCL 0.25% 30ML VIAL As Ordered ONE (13:02)
[2023-02-13] MEDS ORDERED: ACETAMINOPHEN 1000MG 100ML IV BAG As Ordered ONE (13:48)
[2023-02-13] MEDS ORDERED: oxyCODONE 5MG TAB PO PRN ×2 (13:55→14:00)
[2023-02-13] MEDS ORDERED: fentaNYL 100 MCG/2 ML INJECTION IV PRN (13:55)
[2023-02-13] MEDS ORDERED: ONDANSETRON 4MG 2ML VIAL IV PRN (13:55)
[2023-02-13] MEDS: HYDROMORPHONE HCL 0.5 MG/ 0.5 ML SYRINGE IV PRN ×2 (14:20→14:28)
[2023-02-13] MEDS: oxyCODONE 5MG TAB PO PRN ×2 (14:46→20:51)
[2023-02-13] MEDS ORDERED: FLUDROCORTISONE ACETATE 0.1 MG TAB PO SCH (15:00)
[2023-02-13 15:58] LABS: BLOOD UREA NITROGEN 5 MG/DL (9-23); CALCIUM LEVEL 8.9 MG/DL (8.5-10.1); CARBON DIOXIDE LEVEL 30 MMOL/L (20-31); CHLORIDE LEVEL 106 MMOL/L (98-107); CREATININE FOR GFR 0.63 MG/DL (0.55-1.30); GLOMERULAR FILTRATION RATE > 60.0 (>60); GLUCOSE, FASTING 110 MG/DL (60-100); POTASSIUM SERUM 4.7 MMOL/L (3.5-5.1); SODIUM LEVEL 139 MMOL/L (136-145)
[2023-02-13] MEDS ORDERED: RIME75TA PO (16:10)
[2023-02-13] MEDS ORDERED: HOME MED LIST COMPLETE! XX SCH (16:10)
[2023-02-13] MEDS ORDERED: AMIT25TA17 PO (16:10)
[2023-02-13] MEDS ORDERED: ONDA8TAB8 PO (16:10)
[2023-02-13] MEDS: ACETAMINOPHEN TAB 650MG DOSE (2X325MG) PO PRN (16:18)
[2023-02-13] MEDS ORDERED: HYDROCORTISONE 10 MG TAB PO ONE (17:10)
[2023-02-13] MEDS ORDERED: HYDROMORPHONE HCL 0.5 MG/ 0.5 ML SYRINGE IV ONE ×2 (19:30→23:00)
[2023-02-13] MEDS: FAMOTIDINE 20 MG TAB PO SCH (19:57)
[2023-02-13] MEDS: DOCUSATE SODIUM 100MG CAPSULE PO SCH (20:50)
[2023-02-13] MEDS: HEPARIN SOD (PORCINE) 5000UNITS/ML 1ML VIAL/SYRINGE SQ SCH (20:51)
[2023-02-13 23:14] LABS: HEMATOCRIT 36.7 % (36.0-47.0); HEMOGLOBIN 12.1 g/dl (12.0-15.5)
[2023-02-13] MEDS: ONDANSETRON 4MG 2ML VIAL IV PRN (23:34)
[2023-02-14] MEDS: ACETAMINOPHEN TAB 650MG DOSE (2X325MG) PO PRN ×2 (00:16→08:14)
[2023-02-14] MEDS ORDERED: HYDROMORPHONE HCL 0.5 MG/ 0.5 ML SYRINGE IV PRN (01:05)
[2023-02-14] MEDS: oxyCODONE 5MG TAB PO PRN (05:52)
[2023-02-14] MEDS: HEPARIN SOD (PORCINE) 5000UNITS/ML 1ML VIAL/SYRINGE SQ SCH (05:53)
[2023-02-14] MEDS ORDERED: FLUDROCORTISONE ACETATE 0.1 MG TAB PO SCH (06:00)
[2023-02-14 06:06] VITALS: BP 110/74
[2023-02-14 06:50] LABS: BASO % 0.2 % (0.0-1.0); EOS % 0.2 % (0.0-3.0); HEMATOCRIT 35.1 % (36.0-47.0); HEMOGLOBIN 11.7 g/dl (12.0-15.5); LYMPH # 1.4 10^3/uL (1.5-5.0); LYMPH % 16.7 % (24.0-44.0); MEAN CORPUSCULAR HEMOGLOBIN 31.2 pg (27.0-33.0); MEAN CORPUSCULAR HGB CONC 33.3 g/dl (32.0-36.5); MEAN CORPUSCULAR VOLUME 93.6 fl (80.0-96.0); MONO # 0.5 10^3/uL (0.0-0.8); MONO % 6.1 % (2.0-8.0); NEUTROPHILS # 6.1 10^3/uL (1.5-8.5); NEUTROPHILS % 76.3 % (36.0-66.0); PLATELET COUNT, AUTOMATED 210 10^3/uL (150-450); RED BLOOD COUNT 3.75 10^6/uL (4.00-5.40); WHITE BLOOD COUNT 8.1 10^3/uL (4.0-10.0)
[2023-02-14 07:25] LABS: ALBUMIN 3.1 G/DL (3.2-5.2); ALKALINE PHOSPHATASE 51 U/L (46-116); ALT/SGPT 19 U/L (7.0-40); AST/SGOT 16 U/L (<34); BILIRUBIN,TOTAL 0.3 MG/DL (0.3-1.2); BLOOD UREA NITROGEN 6 MG/DL (9-23); CALCIUM LEVEL 8.4 MG/DL (8.5-10.1); CARBON DIOXIDE LEVEL 31 MMOL/L (20-31); CHLORIDE LEVEL 105 MMOL/L (98-107); CREATININE FOR GFR 0.73 MG/DL (0.55-1.30); GLOMERULAR FILTRATION RATE > 60.0 (>60); GLUCOSE, FASTING 112 MG/DL (60-100); POTASSIUM SERUM 3.7 MMOL/L (3.5-5.1); SODIUM LEVEL 138 MMOL/L (136-145); TOTAL PROTEIN 5.2 G/DL (5.7-8.2)
[2023-02-14] MEDS: ONDANSETRON 4MG 2ML VIAL IV PRN (08:13)
[2023-02-14] MEDS: DOCUSATE SODIUM 100MG CAPSULE PO SCH (08:13)
[2023-02-14] MEDS: FAMOTIDINE 20 MG TAB PO SCH (08:14)
[2023-02-14] MEDS ORDERED: HYDROmorphone 2 MG TAB PO ONE (08:35)
[2023-02-14] MEDS ORDERED: ESCITALOPRAM OXALATE 10 MG TAB (LEXAPRO) PO SCH (09:00)
[2023-02-14] MEDS ORDERED: predniSONE 10MG TAB PO SCH (09:00)
[2023-02-14 10:00] VITALS: BP 112/75
== END 2023-02-14 13:50 | disposition home or self-care (01) ==
LOC: M SDC 10:15 → M MS5PR 10:16
PROVIDERS: ADMIT Obstetrics & Gynecology; ATTEND Obstetrics & Gynecology
DX: R10.2 Pelvic and perineal pain (principal); K27.9 Peptic ulcer, site unspecified, unspecified as acute or chronic, without hemorrhage or perforation; E27.2 Addisonian crisis; Z79.899 Other long term (current) drug therapy; Z88.0 Allergy status to penicillin; Z88.2 Allergy status to sulfonamides; Z88.5 Allergy status to narcotic agent; Z88.8 Allergy status to other drugs, medicaments and biological substances
CPT/HCPCS: 36415; 49320; 80048; 80053; 83605; 85014; 85018; 85025; 85027; 86850; 86900; 86901; 87070; 87075; 87205; 96372; 96374; 96375; 96376; J0131; J1100; J1170; J2250; J2405; J2920; J3010; J7512; S0020